=== PATIENT | female | born 1965 | race Caucasian/White ===

== ENCOUNTER 2016-08-17 20:52 | Inpatient (IN) | payer OTHER ==
[2016-08-17] MEDS ORDERED: Ondansetron 4 MG/2 ML SDV IVPUSH ONE ×2 (21:26→22:05)
[2016-08-17] MEDS ORDERED: Sodium Chloride 0.9% 1,000 ML IV SCH (22:15)
[2016-08-17] MEDS ORDERED: HYDROmorphone 1 MG/ML Syringe IVPUSH ONE (22:20)
[2016-08-17] MEDS ORDERED: Iopamidol 612 MG/ML 100 ML Bottle IV STA (23:19)
[2016-08-17] MEDS ORDERED: Lactated Ringers 1,000 ML IV SCH (23:30)
[2016-08-18] MEDS ORDERED: HYDROmorphone 1 MG/ML Syringe IVPUSH ONE (00:08)
[2016-08-18] MEDS ORDERED: Ondansetron 4 MG/2 ML SDV IVPUSH ONE (00:09)
--- NOTE | 2016-08-18 00:28 | EDM.PDOC ---
ED HPI GENERAL MEDICAL PROBLEM - General Chief Complaint: Gastrointestinal Problem Stated Complaint: STOMACH PAIN/VOMITING Time Seen by Provider: 08/17/16 21:58 Source of Information: Reports: Patient History Limitations: Reports: No Limitations - History of Present Illness INITIAL COMMENTS - FREE TEXT/NARRATIVE: History of present illness: [51-year-old female presenting with nausea and vomiting all day she has not had any oral intake. She's had no fevers or chills. She has some epigastric abdominal pain. Nausea and vomiting seems to be intractable. She appears ill and dry.] Review of systems: As per history of present illness and below otherwise all systems reviewed and negative. Past medical history: As per history of present illness and as reviewed below otherwise noncontributory. Surgical history: As per history of present illness and as reviewed below otherwise noncontributory. Social history: No reported history of drug or alcohol abuse. Family history: As per history of present illness and as reviewed below otherwise noncontributory. Physical exam: HEENT: Atraumatic, normocephalic, pupils reactive, negative for conjunctival pallor or scleral icterus, mucous membranes moist, throat clear, neck supple, nontender, trachea midline. Lungs: Clear to auscultation, breath sounds equal bilaterally, chest nontender. Heart: S1S2, regular, negative for clicks, rubs, or JVD. Abdomen: Her abdomen is soft with some tenderness to palpation in the right lower quadrant but she has some mild tenderness in the right lower quadrant as well. Bowel sounds are active. Pelvis: Stable nontender. Genitourinary: Deferred. Rectal: Deferred. Extremities: Atraumatic, negative for cords or calf pain. Neurovascular unremarkable. Neuro: Awake, alert, oriented.Exam nonfocal. 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 Dr. Webster's is jump iron machine presser] Definitive disposition and diagnosis as appropriate pending reevaluation and review of above. Abdomen Pain Score (Numeric/FACES): 9 - Related Data Allergies Allergy/AdvReac Type Severity Reaction Status Date / Time Uukliun-Xgd-Ejz Reductase Allergy Cannot Verified 08/17/16 21:10 Inhibitor Remember Home Meds: Home Meds Folic Acid 0.4 mg PO DAILY 06/10/13 [History] Iron 18 mg PO DAILY 06/10/13 [History] Niacin 50 mg PO DAILY 06/10/13 [History] [place]-3/DHA/Epa/Fish Oil [Fish Oil Dr 500 mg Softgel] 500 mg PO DAILY 06/10/13 [ History] Multivitamin [Multi-Vitamin Daily] 1 tab PO DAILY 08/17/16 [History] Ubidecarenone [Co Q-10] 1 tab PO DAILY 08/17/16 [History] Past Medical History HEENT History: Reports: Impaired Vision 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 ED EXAM, GI/ABD - Physical Exam Exam: See Below Course - Vital Signs Last Recorded V/S: Last Vital Signs Temp 36.2 C 08/17/16 21:08 Pulse 104 H 08/18/16 00:18 Resp 20 08/17/16 23:03 BP 165/97 H 08/18/16 00:18 Pulse Ox 97 08/18/16 00:18 - Orders/Labs/Meds Orders: Active Orders 24 hr Category Date Time Status Abdomen Pelvis w Cont [CT] Stat Exams 08/17/16 23:15 Taken Lactated Ringers [Ringers, Lactated] 1,000 ml Med 08/17/16 23:30 Active IV ASDIRECTED Sodium Chloride 0.9% [Normal Saline] 1,000 ml Med 08/17/16 22:15 Active IV ASDIRECTED cefOXitin [Mefoxin] 1 gm Med 08/18/16 00:23 Ordered Sodium Chloride 0.9% [Normal Saline] 50 ml IV ONETIME Medication Orders Sodium Chloride (Normal Saline) 1,000 mls @ 999 mls/hr IV ASDIRECTED [facility] Last Admin: 08/17/16 22:16 Dose: 999 mls/hr Lactated Ringer's (Ringers, Lactated) 1,000 mls @ 999 mls/hr IV ASDIRECTED [facility] Last Admin: 08/17/16 23:20 Dose: 999 mls/hr Cefoxitin Sodium 1 gm/ Sodium (Chloride) 50 mls @ 100 mls/hr IV ONETIME ONE Stop: 08/18/16 00:52 Labs: Laboratory Tests 08/17/16 08/17/16 08/17/16 Range/Units 22:16 22:16 23:13 WBC 22.3 H (4.5-11.0) K/uL RBC 5.18 (3.30-5.50) M/uL Hgb 16.1 H D (12.0-15.0) g/dL Hct 47.1 (36.0-48.0) % MCV 91 (80-98) fL MCH 31 (27-31) pg MCHC 34 (32-36) % Plt Count 369 (150-400) K/uL Neut % (Auto) 92 H (36-66) % Lymph % (Auto) 5 L (24-44) % [place] % (Auto) 3 (2-6) % Eos % (Auto) 0 L (2-4) % Baso % (Auto) 0 (0-1) % ABG Hemoglobin (12.0-16.0) g/dL ABG Oxyhemoglobin % ABG Carboxyhemoglobin (0.0-1.6) % ABG Methemoglobin % VBG pH (7.350-7.450) VBG pCO2 mm/Hg VBG pO2 mm/Hg VBG HCO3 mmol/L VBG Total CO2 mmol/L VBG O2 Saturation VBG O2 Content %vol VBG Base Excess mm/L O2 Delivery Device Sodium 135 L (140-148) mmol/L Potassium 4.5 (3.6-5.2) mmol/L Chloride 94 L (100-108) mmol/L Carbon Dioxide 13 L (21-32) mmol/L Anion Gap 32.5 H (5.0-14.0) mmol/L BUN 10 (7-18) mg/dL Creatinine 0.7 (0.6-1.0) mg/dL Est Cr Clr Drug Dosing 75.20 mL/min Estimated GFR (MDRD) > 60 (>60) Glucose 102 (74-106) mg/dL Lactic Acid 2.9 H (0.4-2.0) mmol/L Calcium 8.8 D (8.5-10.1) mg/dL Total Bilirubin 1.1 H (0.2-1.0) mg/dL AST 84 H D (15-37) U/L ALT 85 H (12-78) U/L Alkaline Phosphatase 74 (46-116) U/L Total Protein 8.9 H (6.4-8.2) g/dL Albumin 4.4 (3.4-5.0) g/dL Globulin 4.5 H (2.3-3.5) g/dL Albumin/Globulin Ratio 1.0 L (1.2-2.2) Amylase 32 (25-115) U/L Lipase 76 (73-393) U/L // Range/Units 23:15 WBC (4.5-11.0) K/uL RBC (3.30-5.50) M/uL Hgb (12.0-15.0) g/dL Hct (36.0-48.0) % MCV (80-98) fL MCH (27-31) pg MCHC (32-36) % Plt Count (150-400) K/uL Neut % (Auto) (36-66) % Lymph % (Auto) (24-44) % [place] % (Auto) (2-6) % Eos % (Auto) (2-4) % Baso % (Auto) (0-1) % ABG Hemoglobin 15.2 (12.0-16.0) g/dL ABG Oxyhemoglobin 85.8 % ABG Carboxyhemoglobin 1.1 (0.0-1.6) % ABG Methemoglobin 0.8 % VBG pH 7.279 L (7.350-7.450) VBG pCO2 27.7 mm/Hg VBG pO2 60.1 mm/Hg VBG HCO3 12.6 mmol/L VBG Total CO2 11.3 mmol/L VBG O2 Saturation 87.5 VBG O2 Content 18.3 %vol VBG Base Excess -12.6 mm/L O2 Delivery Device Room air Sodium (140-148) mmol/L Potassium (3.6-5.2) mmol/L Chloride (100-108) mmol/L Carbon Dioxide (21-32) mmol/L Anion Gap (5.0-14.0) mmol/L BUN (7-18) mg/dL Creatinine (0.6-1.0) mg/dL Est Cr Clr Drug Dosing mL/min Estimated GFR (MDRD) (>60) Glucose (74-106) mg/dL Lactic Acid (0.4-2.0) mmol/L Calcium (8.5-10.1) mg/dL Total Bilirubin (0.2-1.0) mg/dL AST (15-37) U/L ALT (12-78) U/L Alkaline Phosphatase (46-116) U/L Total Protein (6.4-8.2) g/dL Albumin (3.4-5.0) g/dL Globulin (2.3-3.5) g/dL Albumin/Globulin Ratio (1.2-2.2) Amylase (25-115) U/L Lipase (73-393) U/L Meds: Medications Generic Name Dose Route Start Last Admin Trade Name Freq PRN Reason Stop Dose Admin Sodium Chloride 1,000 mls @ 999 mls/hr 08/17/16 22:15 08/17/16 22:16 Normal Saline IV 999 mls/hr ASDIRECTED TIFFANIE Administration Lactated Ringer's 1,000 mls @ 999 mls/hr 08/17/16 23:30 08/17/16 23:20 Ringers, Lactated IV 999 mls/hr ASDIRECTED TIFFANIE Administration Cefoxitin Sodium 1 gm/ Sodium 50 mls @ 100 mls/hr 08/18/16 00:23 Chloride IV 08/18/16 00:52 ONETIME ONE Discontinued Medications Generic Name Dose Route Start Last Admin Trade Name Freq PRN Reason Stop Dose Admin Hydromorphone HCl 0.5 mg 08/17/16 22:20 08/17/16 22:40 Dilaudid IVPUSH 08/17/16 22:21 0.5 mg ONETIME ONE Administration Hydromorphone HCl 1 mg 08/18/16 00:08 08/18/16 00:15 Dilaudid IVPUSH 08/18/16 00:09 1 mg ONETIME ONE Administration Sodium Chloride 70 mls @ 3 mls/sec 08/17/16 23:20 08/17/16 23:34 Normal Saline IV 08/17/16 23:21 3 mls/sec ASDIRECTED STA Administration Iopamidol 70 ml 08/17/16 23:19 08/17/16 23:34 Isovue-300 (61%) IV 08/17/16 23:20 100 ml . DIRECTED STA Administration Ondansetron HCl 4 mg 08/17/16 21:26 08/17/16 21:32 Zofran IVPUSH 08/17/16 21:27 4 mg ONETIME ONE Administration Ondansetron HCl 4 mg 08/17/16 22:05 08/17/16 22:16 Zofran IVPUSH 08/17/16 22:06 4 mg ONETIME ONE Administration Ondansetron HCl 4 mg 08/18/16 00:09 08/18/16 00:15 Zofran IVPUSH 08/18/16 00:10 4 mg ONETIME ONE Administration Departure - Departure Time of Disposition: 00:28 Disposition: Home, Self-Care 01 Condition: Fair Clinical Impression: Acute appendicitis Qualifiers: Acute appendicitis type: with localized peritonitis Qualified Code(s): K35.3 - Acute appendicitis with localized peritonitis - Discharge Information Forms: ED Department Discharge - My Orders Last 24 Hours: My Active Orders 08/17/16 22:15 Sodium Chloride 0.9% [Normal Saline] 1,000 ml IV ASDIRECTED 08/17/16 23:15 Abdomen Pelvis w Cont [CT] Stat 08/17/16 23:30 Lactated Ringers [Ringers, Lactated] 1,000 ml IV ASDIRECTED 08/18/16 00:23 cefOXitin [Mefoxin] 1 gm Sodium Chloride 0.9% [Normal Saline] 50 ml IV ONETIME - Assessment/Plan Last 24 Hours: My Active Orders 08/17/16 22:15 Sodium Chloride 0.9% [Normal Saline] 1,000 ml IV ASDIRECTED 08/17/16 23:15 Abdomen Pelvis w Cont [CT] Stat 08/17/16 23:30 Lactated Ringers [Ringers, Lactated] 1,000 ml IV ASDIRECTED 08/18/16 00:23 cefOXitin [Mefoxin] 1 gm Sodium Chloride 0.9% [Normal Saline] 50 ml IV ONETIME
[2016-08-18] MEDS ORDERED: Ondansetron 4 MG/2 ML SDV IVPUSH PRN (01:07)
[2016-08-18] MEDS ORDERED: Scopolamine 1.5 MG Transdermal Patch TRDERM PRN (01:08)
[2016-08-18] MEDS ORDERED: Promethazine 25 MG Tab PO PRN ×4 (01:09→11:53)
[2016-08-18] MEDS ORDERED: Promethazine 12.5 MG in Sodium Chloride 0.9% 50 ML IV PRN ×2 (01:10→01:15)
[2016-08-18] MEDS ORDERED: Piperacillin/Tazobactam 4.5 GM Vial ONE (01:16)
[2016-08-18] MEDS ORDERED: diphenhydrAMINE 50 MG/ML SDV IVPUSH PRN (01:18)
[2016-08-18] MEDS ORDERED: diphenhydrAMINE 25 MG Cap PO PRN (01:19)
[2016-08-18] MEDS ORDERED: fentaNYL 100 MCG/2 ML SDV IVPUSH SCH (01:30)
[2016-08-18] MEDS ORDERED: fentaNYL 100 MCG/2 ML SDV IVPUSH PRN ×2 (01:46→11:51)
[2016-08-18] MEDS: Sodium Chloride 0.9% 1,000 ML IV SCH ×3 (01:48→21:43)
[2016-08-18] MEDS: Morphine 2 MG/ML Syringe IVPUSH PRN ×3 (02:03→20:21)
[2016-08-18] MEDS: Piperacillin/Tazobactam 4.5 GM in Sodium Chloride 0.9% 100 ML IV SCH ×2 (02:10→11:15)
[2016-08-18] MEDS ORDERED: fentaNYL 250 MCG/5 ML SDV ONE (06:50)
[2016-08-18] MEDS ORDERED: Propofol 200 MG/20 ML SDV ONE (06:50)
[2016-08-18] MEDS ORDERED: Neostigmine Methylsulfate 1 MG/ML 5 ML Syringe ONE (06:50)
[2016-08-18] MEDS ORDERED: Rocuronium 50 MG/5 ML Vial ONE (06:50)
[2016-08-18] MEDS ORDERED: Dexamethasone 4 MG/ML SDV ONE (06:50)
[2016-08-18] MEDS ORDERED: Ondansetron 4 MG/2 ML SDV ONE (06:50)
[2016-08-18] MEDS ORDERED: Midazolam 1 MG/ML 2 ML SDV ONE (07:06)
[2016-08-18] MEDS ORDERED: Succinylcholine/Normal Saline 200 MG/10 ML Syringe ONE (07:06)
[2016-08-18] MEDS: Bupivacaine 0.5%/EPINEPHrine 1:200,000 50 ML MDV ONE ×2 (07:30→08:11)
[2016-08-18] MEDS ORDERED: Lactated Ringers 1,000 ML ONE (07:31)
[2016-08-18] MEDS ORDERED: Ketorolac 60 MG/2 ML SDV ONE (07:36)
[2016-08-18] MEDS: Nicotine 14 MG/24 Hr Patch TRDERM SCH ×2 (10:00→10:32)
[2016-08-18] MEDS: Piperacillin/Tazobactam/Dext 4.5 GM in Premix Bag 1 BAG IV SCH ×2 (10:30→17:55)
--- NOTE | 2016-08-18 12:02 | CONS ---
DATE OF SERVICE: 08/18/2016 REFERRING PHYSICIAN: CONSULTING PHYSICIAN: Ricco Webster MD REASON FOR CONSULTATION: Right lower quadrant abdominal pain. HISTORY OF PRESENT ILLNESS: A pleasant 51-year-old female with right lower quadrant abdominal pain. This has been present for approximately 24 hours. This is associated with some nausea. This is a new problem for her. PAST MEDICAL HISTORY: Smoker, back pain. PAST SURGICAL HISTORY: No previous abdominal surgery. SOCIAL HISTORY: The patient is a smoker. FAMILY HISTORY: No family history of appendiceal carcinoma. REVIEW OF SYSTEMS: GENERAL: The patient is appropriate for condition. HEENT: No symptoms. CARDIOVASCULAR: No history of myocardial infarction. RESPIRATORY: No shortness of breath. The patient is a smoker, but can walk several blocks without trouble breathing. GASTROINTESTINAL: Normal bowel movements. GENITOURINARY: No dysuria. NEUROLOGICAL: No symptoms. PSYCH: No symptoms. The remainder of the review of systems reviewed and is negative. PHYSICAL EXAMINATION: VITAL SIGNS: Stable. HEENT: Pupils are equal. GENERAL: The patient is resting comfortably. CARDIOVASCULAR: Regular rhythm and rate. RESPIRATORY: Lungs are clear to consultation bilaterally. ABDOMEN: Bowel sounds positive. Pain with palpation in right lower quadrant. EXTREMITIES: Full range of motion. NEUROLOGICAL: Alert and oriented x3. PSYCH: No gross depression. ASSESSMENT: Appendicitis. PLAN: The patient is to undergo a laparoscopic appendectomy. We discussed risks, benefits, alternatives, and limitations, including, but not limited to infection, bleeding, and perforation to abdominal structures. The patient understands these risks and wished to proceed. Of note, we also discussed fistula formation, removing a normal appendix and requirement for open surgery, and cardiovascular and respiratory issues, intra and postoperatively. Rcico Webster MD /[id number]
[2016-08-18] MEDS ORDERED: Pantoprazole 40 MG Vial IVPUSH SCH (13:00)
--- NOTE | 2016-08-18 14:10 | OR ---
DATE OF PROCEDURE: 08/18/2016 PROCEDURE: Laparoscopic appendectomy. FINDINGS: Appendicitis, non ruptured. ANESTHESIA: General/local. INDICATIONS: This is a 51-year-old female with right lower quadrant abdominal pain diagnosed with appendicitis requiring appendectomy. Risks, benefits, alternatives, and limitations, including, but not limited to infection, bleeding, and perforation, fistula formation, requirement for open surgery, the possibility of cardiopulmonary compromise were all explained to the patient and wished to proceed. PROCEDURE IN DETAIL: The patient was placed in supine position. A supraumbilical curvilinear incision was made. A Veress needle was used to enter the abdomen without abnormality. A drop test was performed without abnormality. The abdomen was subsequently insufflated. The trocar was inserted. No evidence of enterotomy or injury was noted during entry. Two additional 5 mm ports were also placed under direct visualization. The appendix was identified in its classic anatomical non-retrograde location. This was elevated and the tip was inspected, this was found to contain a fecalith; however, there was no evidence of rupture. This was transected with a dodson load stapler. The minimal bleeding from the staple line was controlled with electrocautery. The electrocautery contacted a proximal area approximately 0.5 cm from the appendiceal stump. This was a very minimal contact and was not full thickness. However, due to this, this was oversewn with a Vicryl suture in an imbricating fashion. The abdomen was thoroughly irrigated with 1 L of irrigation. No evidence of abnormality was noted. Aside from the appendicitis and the fluid was removed from the appendiceal location around the liver bed and the pelvis and the generally in the abdomen. The air was removed. The wounds were thoroughly irrigated and closed with 3-0 Vicryl and 4- 0 Vicryl interrupted running fashion. Local anesthetic was applied. The patient tolerated the procedure well. Ricco Webster MD /[id number]
[2016-08-19] MEDS: Piperacillin/Tazobactam/Dext 4.5 GM in Premix Bag 1 BAG IV SCH (01:45)
[2016-08-19] MEDS: Morphine 2 MG/ML Syringe IVPUSH PRN ×2 (03:28→06:00)
[2016-08-19] MEDS: Sodium Chloride 0.9% 1,000 ML IV SCH (05:51)
[2016-08-19 05:57] VITALS: BP 153/89
[2016-08-19] MEDS ORDERED: Acetaminophen/HYDROcodone 325-5 MG Tab PO PRN (07:30)
--- NOTE | 2016-08-20 02:27 | DISCH ---
FINAL DIAGNOSIS: Acute appendicitis. OPERATIVE PROCEDURE: Laparoscopic appendectomy. HOSPITAL COURSE: This is a 51-year-old female presenting with a picture of an acute appendicitis yesterday morning. Dr. Webster brought the patient to the operating room and a laparoscopic appendectomy was completed. No significant postoperative problems were noted. She is continued on the antibiotics overnight and is still on IV pain medication at this point. Plan will be switch over to [place] today if symptoms are satisfactory. She will be discharged home later today. She has no drains present. Wound care instructions were given. She will be continue the present home medications plus [place] 5/325 one to two tablets q.4 hours p.r.n. pain. She will be following up with Dr. Webster next week in [facility].
[2016-08-20] MEDS ORDERED: Pantoprazole 40 MG Tab.CR PO SCH (07:30)
== END 2016-08-19 08:52 | disposition home or self-care (01) | DRG 340 ==
LOC: JP.ED 20:52 → JP.ICU 08-18 00:58
PROVIDERS: ADMIT Surgery; ATTEND Surgery
PROC: 0DTJ4ZZ Resection of Appendix, Percutaneous Endoscopic Approach (ICD-10-PCS; principal; 2016-08-18)
DX: K35.3 Acute appendicitis with localized peritonitis (principal); F17.210 Nicotine dependence, cigarettes, uncomplicated; H54.7 Unspecified visual loss; Z88.8 Allergy status to other drugs, medicaments and biological substances
CPT/HCPCS: 36415; 74177; 80048; 80053; 82150; 82803; 83605; 83690; 85025; 88304; 96361; 96365; 96367; 96375; 96376; 99285-25; A9270-GY; C9113; J0694; J1100; J1170; J1885; J2250; J2270; J2405; J2543; J2550; J2704; J3010; J7030; J7040; J7050; J7120; Q9967

== ENCOUNTER 2020-03-06 17:02 | Observation (INO) | payer BC ==
[2020-03-06] MEDS: Sodium Chloride 0.9% 1,000 ML IV SCH ×2 (17:51→19:26)
--- NOTE | 2020-03-06 17:51 | EDM.PDOC ---
ED HPI GENERAL MEDICAL PROBLEM - General Chief Complaint: Gastrointestinal Problem Stated Complaint: VOMITTING Time Seen by Provider: 03/06/20 17:30 Source of Information: Reports: Patient, Family History Limitations: Reports: No Limitations - History of Present Illness INITIAL COMMENTS - FREE TEXT/NARRATIVE: 55-year-old female with inability to swallow food or fluids for the past 36 hours. Mild to moderate substernal pressure and discomfort but no abdominal bloating or radiation of pain to the back. No fevers or chills. No diarrhea. It started after she woke up yesterday morning. She will take a few swallows of Gatorade, Pedialyte, fluids, does not matter what she tries to drink within a few minutes it builds up and comes back up. She has not tried to eat anything solid in the last 2 days. Onset: Unknown/Unsure (Symptoms were present yesterday morning when she woke up) Improves with: Reports: None Worsens with: Reports: Other (Symptoms worsen with any attempt at taking anything oral whether it is liquid or solid) Associated Symptoms: Reports: Chest Pain (Mild pressure, especially after drinking fluids) Abdomen Pain Score (Numeric/FACES): 6 - Related Data Allergies Allergy/AdvReac Type Severity Reaction Status Date / Time Saabieu-Cli-Wpq Reductase Allergy Unknown Cannot Verified 03/06/20 18:32 Inhibitor Remember Home Meds: Home Meds Iron 18 mg PO DAILY 06/10/13 [History] Niacin 50 mg PO DAILY 06/10/13 [History] [place]-3/DHA/Epa/Fish Oil [Fish Oil Dr 500 mg Softgel] 500 mg PO DAILY 06/10/13 [History] Multivitamin [Multi-Vitamin Daily] 1 tab PO DAILY 08/17/16 [History] Ubidecarenone [Co Q-10] 1 tab PO DAILY 08/17/16 [History] Garlic [Garlique] 5,000 mcg PO DAILY 03/06/20 [History] Metoprolol Succinate 50 mg PO DAILY 03/06/20 [History] Past Medical History HEENT History: Reports: Impaired Vision Cardiovascular History: Reports: Hypertension 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 Denies: Fever, Chills HEENT: Denies: Throat Pain Respiratory: Denies: Shortness of Breath Cardiovascular: Reports: Chest Pain GI/Abdominal: Reports: Abdominal Pain (Mild discomfort in the upper abdomen after she tries to eat or drink but none currently) : Reports: No Symptoms Neurological: Reports: No Symptoms Psychiatric: Reports: No Symptoms ED EXAM, GI/ABD - Physical Exam Exam: See Below Exam Limited By: No Limitations General Appearance: Alert, No Apparent Distress Eyes: Bilateral: Normal Appearance (No jaundice) Head: Atraumatic Respiratory/Chest: No Respiratory Distress, Lungs Clear Cardiovascular: Regular Rate, Rhythm, Tachycardia GI/Abdominal Exam: Soft, Non-Tender, Other (Hypoactive bowel sounds) Neurological: Alert, Oriented Psychiatric: Anxious Course - Vital Signs Last Recorded V/S: Last Vital Signs Temp 98.8 F 03/07/20 02:00 Pulse 120 H 03/07/20 02:00 Resp 18 03/07/20 02:00 BP 132/68 03/07/20 02:00 Pulse Ox 93 L 03/07/20 02:00 - Orders/Labs/Meds Orders: Active Orders 24 hr Category Date Time Status Admission Status [Patient Status] [ADT] Routine ADT 03/06/20 18:06 Active Sodium Chloride 0.9% [Normal Saline] 1,000 ml Med 03/06/20 17:45 Active IV ASDIRECTED Medication Orders Dexamethasone (Decadron) 10 mg IVPUSH Q4H PRN PRN Reason: NAUSEA/VOMITING Diphenhydramine HCl (Benadryl) 25 - 50 mg PO Q4H PRN PRN Reason: Itching Diphenhydramine HCl (Benadryl) 25 - 50 mg IVPUSH Q4H PRN PRN Reason: Itching Dronabinol (Marinol) 2.5 mg PO BID PRN PRN Reason: NAUSEA/VOMINTING Sodium Chloride (Normal Saline) 1,000 mls @ 1,000 mls/hr IV ASDIRECTED TIFFANIE Last Admin: 03/06/20 17:51 Dose: 1,000 mls/hr Documented by: BINH Sodium Chloride (Normal Saline) 1,000 mls @ 125 mls/hr IV ASDIRECTED TIFFANIE Last Admin: 03/07/20 04:14 Dose: 125 mls/hr Documented by: Infusion: 03/07/20 03:26 Dose: 125 mls/hr Documented by: Admin: 03/06/20 19:26 Dose: 125 mls/hr Documented by: ELBA Morphine Sulfate (Morphine) 1 - 2 mg IV Q2H PRN PRN Reason: Pain Nicotine (Habitrol) 14 mg TRDERM Q24H PRN PRN Reason: Other Check Scopolamine (Patch) 1 each .XX DAILY TIFFANIE Check Nicotine Patch 1 each .XX DAILY TIFFANIE Ondansetron HCl (Zofran) 4 mg IVPUSH Q4H PRN PRN Reason: Nausea Prochlorperazine Edisylate (Compazine) 5 - 10 mg IV Q4H PRN PRN Reason: NAUSEA Last Admin: 03/06/20 23:09 Dose: 10 mg Documented by: ELBA Promethazine HCl (Phenergan) 12.5 - 25 mg IV Q4H PRN PRN Reason: NAUSEA AND VOMITING Scopolamine (Transderm-Scop) 1.5 mg TOP Q72H PRN PRN Reason: Nausea Last Admin: 03/06/20 19:47 Dose: 1.5 mg Documented by: ELBA Labs: Laboratory Tests 03/06/20 03/06/20 03/06/20 Range/Units 17:50 17:50 18:00 WBC 13.8 H (4.5-11.0) K/uL RBC 4.75 (3.30-5.50) M/uL Hgb 15.8 H D (12.0-15.0) g/dL Hct 46.8 (36.0-48.0) % MCV 99 H (80-98) fL MCH 33 H (27-31) pg MCHC 34 (32-36) % Plt Count 265 (150-400) K/uL Neut % (Auto) 85 H (36-66) % Lymph % (Auto) 7 L (24-44) % [place] % (Auto) 7 H (2-6) % Eos % (Auto) 0 L (2-4) % Baso % (Auto) 0 (0-1) % Sodium 139 L (140-148) mmol/L Potassium 3.5 L (3.6-5.2) mmol/L Chloride 89 L (100-108) mmol/L Carbon Dioxide 24 (21-32) mmol/L Anion Gap 29.5 H (5.0-14.0) mmol/L BUN 28 H D (7-18) mg/dL Creatinine 1.4 H D (0.6-1.0) mg/dL Est Cr Clr Drug Dosing 35.91 mL/min Estimated GFR (MDRD) 39 L (>60) Glucose 211 H (74-106) mg/dL Calcium 10.7 H D (8.5-10.1) mg/dL Total Bilirubin 1.5 H (0.2-1.0) mg/dL AST 56 H (15-37) U/L ALT 102 H (12-78) U/L Alkaline Phosphatase 78 (46-116) U/L Total Protein 9.6 H (6.4-8.2) g/dL Albumin 4.9 (3.4-5.0) g/dL Globulin 4.7 H (2.3-3.5) g/dL Albumin/Globulin Ratio 1.0 L (1.2-2.2) Lipase 312 (73-393) U/L SARS-CoV-2 RNA (DAYSI) Negative (NEGATIVE) Meds: Medications Generic Name Dose Route Start Last Admin Trade Name Freq PRN Reason Stop Dose Admin Dexamethasone 10 mg 03/06/20 20:05 Decadron IVPUSH Q4H PRN NAUSEA/VOMITING Diphenhydramine HCl 25 - 50 mg 03/06/20 18:55 Benadryl PO Q4H PRN Itching Diphenhydramine HCl 25 - 50 mg 03/06/20 18:55 Benadryl IVPUSH Q4H PRN Itching Dronabinol 2.5 mg 03/06/20 20:05 Marinol PO BID PRN NAUSEA/VOMINTING Sodium Chloride 1,000 mls @ 1,000 mls/hr 03/06/20 17:45 03/06/20 17:51 Normal Saline IV 1,000 mls/hr ASDIRECTED TIFFANIE Administration Sodium Chloride 1,000 mls @ 125 mls/hr 03/06/20 20:00 03/07/20 04:14 Normal Saline IV 125 mls/hr ASDIRECTED TIFFANIE Administration Morphine Sulfate 1 - 2 mg 03/06/20 20:11 Morphine IV Q2H PRN Pain Nicotine 14 mg 03/06/20 20:10 Habitrol TRDERM Q24H PRN Other Check Scopolamine 1 each 03/07/20 09:00 Patch .XX DAILY TIFFANIE Check Nicotine Patch 1 each 03/07/20 09:00 .XX DAILY TIFFANIE Ondansetron HCl 4 mg 03/06/20 20:05 Zofran IVPUSH Q4H PRN Nausea Prochlorperazine Edisylate 5 - 10 mg 03/06/20 20:05 03/06/20 23:09 Compazine IV 10 mg Q4H PRN Administration NAUSEA Promethazine HCl 12.5 - 25 mg 03/06/20 20:05 Phenergan IV Q4H PRN NAUSEA AND VOMITING Scopolamine 1.5 mg 03/06/20 19:09 03/06/20 19:47 Transderm-Scop TOP 1.5 mg Q72H PRN Administration Nausea Discontinued Medications Generic Name Dose Route Start Last Admin Trade Name Freq PRN Reason Stop Dose Admin Sodium Chloride 1,000 mls @ 125 mls/hr 03/06/20 19:00 03/07/20 04:19 Normal Saline IV Not Given .Q8H TIFFANIE Ondansetron HCl 4 mg 03/06/20 18:55 03/06/20 19:26 Zofran IVPUSH 4 mg Q8H PRN Administration Nausea/Vomiting Promethazine HCl 12.5 - 25 mg 03/06/20 18:57 03/06/20 20:25 Phenergan IV 25 mg Q8H PRN Administration Nausea - Radiology Interpretation Free Text/Narrative:: This patient presents with some type of upper GI obstruction, possibly esophageal or gastric outlet. She will need an EGD in the near future. CBC CMP and lipase were obtained, IV started and the patient was bolused with normal saline. I discussed her case with Dr. Webster, he kindly accepted her for admission and will hydrate her and prepare her for procedure likely tomorrow morning. Departure - Departure Time of Disposition: 18:18 Disposition: Admitted As Inpatient 66 Clinical Impression: GI obstruction Nausea and vomiting Qualifiers: Vomiting type: unspecified Vomiting Intractability: intractable Qualified Code(s): R11.2 - Nausea with vomiting, unspecified - Discharge Information Sepsis Event Note (ED) - Evaluation Sepsis Screening Result: No Definite Risk - My Orders Last 24 Hours: My Active Orders 03/06/20 17:45 Sodium Chloride 0.9% [Normal Saline] 1,000 ml IV ASDIRECTED - Assessment/Plan Last 24 Hours: My Active Orders 03/06/20 17:45 Sodium Chloride 0.9% [Normal Saline] 1,000 ml IV ASDIRECTED
[2020-03-06] MEDS ORDERED: Ondansetron 4 MG/2 ML SDV IVPUSH PRN ×3 (18:55→20:05)
[2020-03-06] MEDS ORDERED: diphenhydrAMINE 50 MG/ML SDV IVPUSH PRN (18:55)
[2020-03-06] MEDS ORDERED: diphenhydrAMINE 25 MG Cap PO PRN (18:55)
[2020-03-06] MEDS ORDERED: Promethazine 25 MG/ML SDV IV PRN ×2 (18:57→20:05)
[2020-03-06] MEDS ORDERED: Sodium Chloride 0.9% 1,000 ML IV SCH (19:00)
[2020-03-06] MEDS ORDERED: Scopolamine 1.5 MG Transdermal Patch TOP PRN (19:09)
[2020-03-06] MEDS ORDERED: Prochlorperazine 10 MG/2 ML SDV IV PRN (20:05)
[2020-03-06] MEDS ORDERED: Dexamethasone 4 MG/ML SDV IVPUSH PRN (20:05)
[2020-03-06] MEDS ORDERED: Dronabinol 2.5 MG Cap PO PRN (20:05)
[2020-03-06] MEDS ORDERED: Nicotine 14 MG/24 Hr Patch TRDERM PRN (20:10)
[2020-03-06] MEDS ORDERED: Morphine 2 MG/ML SYRINGE IV PRN (20:11)
[2020-03-07] MEDS: Sodium Chloride 0.9% 1,000 ML IV SCH ×3 (04:14→10:13)
[2020-03-07] MEDS ORDERED: fentaNYL 100 MCG/2 ML SDV ONE (07:05)
[2020-03-07] MEDS ORDERED: Midazolam 1 MG/ML 2 ML SDV ONE (07:05)
[2020-03-07] MEDS ORDERED: Propofol 200 MG/20 ML SDV ONE (07:05)
[2020-03-07] MEDS: Check scopolamine patch SCH (09:49)
[2020-03-07] MEDS ORDERED: Nystatin Susp 100,000 Unit/ML 5 ML UD Cup PO SCH (10:00)
--- NOTE | 2020-03-07 10:00 | CONS ---
DATE OF SERVICE: 03/07/2020 REFERRING PHYSICIAN: CONSULTING PHYSICIAN: Ricco Webster MD CONSULTING: Lincoln Diaz MD REASON FOR CONSULTATION: Dysphagia. HISTORY OF PRESENT ILLNESS: A 55-year-old female who has had approximately 48 hours of dysphagia. This is associated with some nausea. No vomiting, shortness of breath, or chest pain. This is a new problem for her. The patient has had this ongoing, and somewhat stable at this point. PAST MEDICAL HISTORY: Hypertension, appendectomy, hernia repair. SOCIAL HISTORY: She does smoke. FAMILY HISTORY: Noncontributory. REVIEW OF SYSTEMS: GENERAL: The patient feels tired. HEENT: Dysphagia as above. RESPIRATORY: No shortness of breath. CARDIOVASCULAR: No history of chest pain. GASTROINTESTINAL: Abdominal pain, but related to her dysphagia. NEUROLOGIC: No symptoms. PSYCHIATRIC: No symptoms. Remainder of systems reviewed and is negative. PHYSICAL EXAMINATION: VITAL SIGNS: Temperature 98.0, blood pressure 161/91, 113 pulse, respirations 20, 98% on room air. HEENT: Pupils are equal. NECK: Supple. LUNGS: Clear. CARDIOVASCULAR: Regular rhythm and rate. GENERAL: The patient is resting comfortably. NEUROLOGIC: Oriented x3. PSYCHIATRIC: No gross depression. LABORATORY RESULTS: Sodium is 139, creatinine is 1.4. IMAGING DATA: I did review this. No recent imaging. ASSESSMENT: Dysphagia. PLAN: The patient will be admitted to the hospital. She will undergo fluid, electrolyte resuscitation tonight and undergo an esophagogastroduodenoscopy in the morning. We discussed risks, benefits, alternatives, and limitations of this. Ricco Webster MD /[id number]
[2020-03-07] MEDS ORDERED: Potassium Chloride 20 MEQ Tab.ER PO ONE ×2 (10:24→17:00)
--- NOTE | 2020-03-07 10:32 | PCM.PN ---
- General Info Date of Service: 03/07/20 Subjective Update: Ms. Lemus is a 55-year-old woman who was admitted through the emergency department last night with weakness and dehydration secondary to nausea and vomiting of 2 days duration. She felt well until onset of symptoms 2 days ago and over the last 2 days has had negligible oral intake because of persistent vomiting. She was admitted and given IV fluids as well as antiemetic therapy through the night. EGD was performed today by Dr. Webster and did show in flammation in the esophagus, question of possible yeast overgrowth. She is feeling somewhat better and has tolerated some intake of water today without significant vomiting. Functional Status: Reports: Ambulating, Urinating - Review of Systems General: Reports: Weakness, Fatigue. Denies: Fever, Chills Pulmonary: Reports: No Symptoms Cardiovascular: Reports: No Symptoms Gastrointestinal: Reports: Abdominal Pain. Denies: Constipation, Diarrhea, Difficulty Swallowing, Hematochezia, Melena, Nausea, Vomiting Genitourinary: Reports: No Symptoms - Patient Data Vitals - Most Recent: Last Vital Signs Temp 97.7 F 03/07/20 08:45 Pulse 91 03/07/20 10:13 Resp 16 03/07/20 10:13 BP 163/96 H 03/07/20 10:13 Pulse Ox 95 03/07/20 10:13 Weight - Most Recent: 119 lb 15.997 oz I&O - Last 24 Hours: Intake & Output 03/06/20 03/07/20 03/07/20 22:59 06:59 14:59 Output Total 100 400 Balance -100 -400 Lab Results Last 24 Hours: Laboratory Results - last 24 hr 03/06/20 03/06/20 03/06/20 Range/Units 17:50 17:50 18:00 WBC 13.8 H (4.5-11.0) K/uL RBC 4.75 (3.30-5.50) M/uL Hgb 15.8 H D (12.0-15.0) g/dL Hct 46.8 (36.0-48.0) % MCV 99 H (80-98) fL MCH 33 H (27-31) pg MCHC 34 (32-36) % Plt Count 265 (150-400) K/uL Neut % (Auto) 85 H (36-66) % Lymph % (Auto) 7 L (24-44) % Larue % (Auto) 7 H (2-6) % Eos % (Auto) 0 L (2-4) % Baso % (Auto) 0 (0-1) % Sodium 139 L (140-148) mmol/L Potassium 3.5 L (3.6-5.2) mmol/L Chloride 89 L (100-108) mmol/L Carbon Dioxide 24 (21-32) mmol/L Anion Gap 29.5 H (5.0-14.0) mmol/L BUN 28 H D (7-18) mg/dL Creatinine 1.4 H D (0.6-1.0) mg/dL Est Cr Clr Drug Dosing 35.91 mL/min Estimated GFR (MDRD) 39 L (>60) Glucose 211 H (74-106) mg/dL Calcium 10.7 H D (8.5-10.1) mg/dL Total Bilirubin 1.5 H (0.2-1.0) mg/dL AST 56 H (15-37) U/L ALT 102 H (12-78) U/L Alkaline Phosphatase 78 (46-116) U/L Total Protein 9.6 H (6.4-8.2) g/dL Albumin 4.9 (3.4-5.0) g/dL Globulin 4.7 H (2.3-3.5) g/dL Albumin/Globulin Ratio 1.0 L (1.2-2.2) Lipase 312 (73-393) U/L SARS-CoV-2 RNA (DAYSI) Negative (NEGATIVE) 03/07/20 03/07/20 Range/Units 09:14 09:14 WBC 7.8 (4.5-11.0) K/uL RBC 3.80 (3.30-5.50) M/uL Hgb 12.8 D (12.0-15.0) g/dL Hct 39.2 (36.0-48.0) % MCV 103 H (80-98) fL MCH 34 H (27-31) pg MCHC 33 (32-36) % Plt Count 187 (150-400) K/uL Neut % (Auto) (36-66) % Lymph % (Auto) (24-44) % Larue % (Auto) (2-6) % Eos % (Auto) (2-4) % Baso % (Auto) (0-1) % Sodium 141 (140-148) mmol/L Potassium 3.1 L (3.6-5.2) mmol/L Chloride 102 (100-108) mmol/L Carbon Dioxide 26 (21-32) mmol/L Anion Gap 16.1 H (5.0-14.0) mmol/L BUN 19 H (7-18) mg/dL Creatinine 0.8 (0.6-1.0) mg/dL Est Cr Clr Drug Dosing 62.84 mL/min Estimated GFR (MDRD) > 60 (>60) Glucose 113 H (74-106) mg/dL Calcium 8.3 L D (8.5-10.1) mg/dL Total Bilirubin 0.8 (0.2-1.0) mg/dL AST 42 H (15-37) U/L ALT 66 (12-78) U/L Alkaline Phosphatase 55 (46-116) U/L Total Protein 7.0 (6.4-8.2) g/dL Albumin 3.4 (3.4-5.0) g/dL Globulin 3.6 H (2.3-3.5) g/dL Albumin/Globulin Ratio 0.9 L (1.2-2.2) Lipase (73-393) U/L SARS-CoV-2 RNA (DAYSI) (NEGATIVE) Med Orders - Current: Current Medications Dexamethasone (Decadron) 10 mg IVPUSH Q4H PRN PRN Reason: NAUSEA/VOMITING Diphenhydramine HCl (Benadryl) 25 - 50 mg PO Q4H PRN PRN Reason: Itching Diphenhydramine HCl (Benadryl) 25 - 50 mg IVPUSH Q4H PRN PRN Reason: Itching Dronabinol (Marinol) 2.5 mg PO BID PRN PRN Reason: NAUSEA/VOMINTING Morphine Sulfate (Morphine) 1 - 2 mg IV Q2H PRN PRN Reason: Pain Nicotine (Habitrol) 14 mg TRDERM Q24H PRN PRN Reason: Other Check Scopolamine (Patch) 1 each .XX DAILY [facility] Last Admin: 03/07/20 09:49 Dose: Not Given Documented by: Check Nicotine Patch 1 each .XX DAILY [facility] Last Admin: 03/07/20 10:10 Dose: Not Given Documented by: Ondansetron HCl (Zofran) 4 mg IVPUSH Q4H PRN PRN Reason: Nausea Pantoprazole Sodium (Protonix) 40 mg PO BIDAC [facility] Potassium Chloride (Klor-Con M20) 40 meq PO ONETIME ONE Stop: 03/07/20 10:25 Potassium Chloride (Klor-Con M20) 40 meq PO ONETIME ONE Stop: 03/07/20 17:01 Prochlorperazine Edisylate (Compazine) 5 - 10 mg IV Q4H PRN PRN Reason: NAUSEA Last Admin: 03/06/20 23:09 Dose: 10 mg Documented by: Promethazine HCl (Phenergan) 12.5 - 25 mg IV Q4H PRN PRN Reason: NAUSEA AND VOMITING Scopolamine (Transderm-Scop) 1.5 mg TOP Q72H PRN PRN Reason: Nausea Last Admin: 03/06/20 19:47 Dose: 1.5 mg Documented by: Sucralfate (Carafate) 1 gm PO Q6H [facility] Discontinued Medications Fentanyl (Sublimaze) Confirm Administered Dose 100 mcg .ROUTE .STK-MED ONE Stop: 03/07/20 07:06 Sodium Chloride (Normal Saline) 1,000 mls @ 1,000 mls/hr IV ASDIRECTED [facility] Last Admin: 03/07/20 10:11 Dose: 1,000 mls/hr Documented by: Sodium Chloride (Normal Saline) 1,000 mls @ 125 mls/hr IV .Q8H [facility] Last Admin: 03/07/20 04:19 Dose: Not Given Documented by: Sodium Chloride (Normal Saline) 1,000 mls @ 125 mls/hr IV ASDIRECTED [facility] Last Admin: 03/07/20 10:13 Dose: 125 mls/hr Documented by: Midazolam HCl (Versed 1 Mg/Ml) Confirm Administered Dose 2 mg .ROUTE .STK-MED ONE Stop: 03/07/20 07:06 Nystatin (Mycostatin) 5 ml PO QID [facility] Ondansetron HCl (Zofran) 4 mg IVPUSH Q8H PRN PRN Reason: Nausea/Vomiting Last Admin: 03/06/20 19:26 Dose: 4 mg Documented by: Promethazine HCl (Phenergan) 12.5 - 25 mg IV Q8H PRN PRN Reason: Nausea Last Admin: 03/06/20 20:25 Dose: 25 mg Documented by: Propofol (Diprivan 20 Ml) Confirm Administered Dose 200 mg .ROUTE .STK-MED ONE Stop: 03/07/20 07:06 - Exam Quality Assessment: DVT Prophylaxis General: Alert, Oriented, Cooperative, Mild Distress Lungs: Clear to Auscultation, Normal Respiratory Effort Cardiovascular: Regular Rate, Regular Rhythm, No Murmurs GI/Abdominal Exam: Soft, No Organomegaly, Tender. No: Distended, Guarding, Rigid, Rebound Extremities: Non-Tender, No Pedal Edema Sepsis Event Note - Evaluation Sepsis Screening Result: Sepsis Risk - Focused Exam Vital Signs: Vital Signs Temp Pulse Resp BP Pulse Ox 03/07/20 10:13 91 16 163/96 H 95 03/07/20 09:15 102 H 16 148/82 H 95 03/07/20 08:45 97.7 F 105 H 16 147/82 H 95 03/07/20 08:35 102 H 18 128/78 93 L 03/07/20 08:20 115 H 18 132/81 96 03/07/20 08:10 97.7 F 108 H 14 127/70 94 L 03/07/20 08:05 110 H 14 125/69 95 03/07/20 08:00 111 H 14 125/76 94 L 03/07/20 07:55 108 H 14 131/77 96 03/07/20 07:50 97.3 F 115 H 14 110/70 97 03/07/20 07:00 99.0 F 118 H 18 140/79 96 03/07/20 02:00 98.8 F 120 H 18 132/68 93 L - Problem List Review Problem List Initiated/Reviewed/Updated: Yes - My Orders Last 24 Hours: My Active Orders 03/07/20 Breakfast Advance Diet Instructions [DIET] 03/07/20 10:22 Pantoprazole [ProTONIX] 40 mg PO BIDAC Convert IV to Saline Lock [OM.PC] Routine 03/07/20 10:24 Potassium Chloride [Klor-Con M20] 40 meq PO ONETIME ONE 03/07/20 10:30 Sucralfate [Carafate] 1 gm PO Q6H 03/07/20 17:00 Potassium Chloride [Klor-Con M20] 40 meq PO ONETIME ONE 03/08/20 05:11 POTASSIUM,K [CHEM] AM - Plan Plan:: ASSESSMENT AND PLAN VIRAL GASTROENTERITIS-most likely cause of recurrent nausea and vomiting over the past 2 days. Symptomatically she seems to be improved and has tolerated some intake of water today without vomiting. -Saline lock IV -Clear liquid diet, advance to soft low residue if tolerated ESOPHAGITIS-likely secondary to recurrent vomiting over the last 48 hours. Question of possible yeast overgrowth, unlikely as she does not have significant risk factors for yeast infection. -Hold nystatin -Protonix 40 mg p.o. twice daily -Carafate slurry 1 g swish and swallow 4 times daily DEHYDRATION-secondary to nausea and vomiting with poor oral intake, resolved after IV fluids -Saline lock IV MAINTENANCE ISSUES -DVT prophylaxis; mechanical -GI prophylaxis; Protonix as above -Mcintyre catheter; not indicated -Nutrition; clear liquid diet advance as tolerated -Nicotine dependence; not required CODE STATUS-FULL CODE ADMISSION STATUS-patient will be admitted to inpatient status, expect at least a 2 night hospital stay for evaluation and management of problems as outlined above. At the time of this admission I do not reasonably expected evaluation and management of this problem will require more than a 96 hour hospital stay. DISPOSITION-anticipate discharge to home after the hospital stay. PRIMARY CARE PROVIDER-Roxanne Charles
[2020-03-07] MEDS: Pantoprazole 40 MG Tab.CR PO SCH ×2 (10:53→17:07)
[2020-03-07] MEDS: Sucralfate Suspension 1 GM/10 ML Cup PO SCH ×3 (10:53→21:45)
--- NOTE | 2020-03-07 13:00 | OR ---
DATE OF PROCEDURE: 03/07/2020 SURGEON: Ricco Webster MD PROCEDURE: Esophagogastroduodenoscopy. FINDINGS: 1. White plaque-like circumferential lesions in the distal esophagus (biopsied multiple times using cold biopsy forceps). 2. No evidence of obstructing narrowing stricturing. No ulceration. No gastritis. PREOPERATIVE DIAGNOSIS: Dysphagia. POSTOPERATIVE DIAGNOSIS: Dysphagia. RISKS: Risks, benefits, alternatives, and limitations including, but not limited to infection, bleeding, and perforation were explained to the patient and the wished to proceed. PROCEDURE IN DETAIL: The patient was placed in left lateral decubitus position. The EGD scope was introduced and advanced atraumatically to the second part of the duodenum. Scope was brought back within the stomach and retroflexed. The patient would have less than 1 cm hiatal hernia. No gastritis. No duodenitis. No ulceration. Starting at the GE junction moving approximately 5 cm proximal to this, the patient had white plaque-like areas in the circumference. This is consistent with esophagitis versus thrush. The remainder of the esophagus was inspected without abnormality. The patient tolerated the procedure well. Ricco Webster MD /[id number]
[2020-03-08] MEDS: Sucralfate Suspension 1 GM/10 ML Cup PO SCH ×2 (04:51→11:57)
[2020-03-08 08:19] VITALS: PULSE 83
[2020-03-08] MEDS: Pantoprazole 40 MG Tab.CR PO SCH (08:39)
[2020-03-08 08:40] VITALS: BP 146/77
[2020-03-08] MEDS: Check scopolamine patch SCH (08:40)
--- NOTE | 2020-03-08 10:25 | PCM.DCSUM1 ---
Discharge Summary - Hospital Course Brief History: Ms. Lemus is a 55-year-old woman who was admitted through the emergency department with weakness, dehydration, dysphagia, secondary to viral gastroenteritis and persistent nausea and vomiting. - Discharge Data Discharge Date: 03/08/20 Discharge Disposition: Home, Self-Care 01 Condition: Fair - Referral to Home Health Primary Care Physician: IAN Anguiano - Discharge Diagnosis/Problem(s) (1) Viral gastroenteritis SNOMED Code(s): 381258780 ICD Code: A08.4 - VIRAL INTESTINAL INFECTION, UNSPECIFIED Status: Acute Current Visit: Yes (2) Esophagitis SNOMED Code(s): 24832386 ICD Code: K20.90 - ESOPHAGITIS, UNSPECIFIED WITHOUT BLEEDING Status: Acute Current Visit: Yes (3) Nausea and vomiting SNOMED Code(s): 85282704 ICD Code: R11.2 - NAUSEA WITH VOMITING, UNSPECIFIED Status: Acute Current Visit: Yes Qualifiers: Vomiting type: unspecified Vomiting Intractability: intractable Qualified Code(s): R11.2 - Nausea with vomiting, unspecified - Patient Summary/Data Hospital Course: Ms. Lemus is a 55-year-old woman who was admitted through the emergency department with weakness, dehydration, dysphagia, secondary to viral gastroenteritis and persistent vomiting. She was feeling well until 2 days prior to admission when she developed severe nausea and vomiting. Over the last 2 days oral intake has been negligible and she has become progressively more weak also developed difficulty with dysphagia and pain on swallowing. She was admitted through the emergency department by Dr. Webster, the following morning EGD was performed which did show evidence of significant esophagitis. There was question of possible yeast infection, it was felt more likely that the esophagitis was secondary to her persistent nausea and vomiting. She was given IV fluids for hydration as well as oral replacement of potassium for correction of hypokalemia. She was started on Protonix 40 mg twice daily as well as Carafate slurry 1 g 4 times daily. By the following morning she was doing better although still experience some pain and dysphagia but improved from admission. She will be discharged home and is encouraged to maintain hydration with oral fluids. She can have soft solids as tolerated. She will be on Protonix 40 mg twice daily for 2 weeks and then once daily thereafter. Activity will be as tolerated and she will be on a soft low residue diet. Follow-up appointment will be scheduled with her primary care provider within 1 week. - Patient Instructions Diet: GI Soft/Low Residue/Low Fiber Activity: As Tolerated Other/Special Instructions: Please schedule follow-up appointment with primary care provider within 1 week. - Discharge Plan *PRESCRIPTION DRUG MONITORING PROGRAM REVIEWED*: Not Applicable *COPY OF PRESCRIPTION DRUG MONITORING REPORT IN PATIENT CARY: Not Applicable Prescriptions/Med Rec: Pantoprazole [ProTONIX] 40 mg PO BIDAC #30 tab.cr Home Medications: Home Meds Iron 18 mg PO DAILY 06/10/13 [History] Niacin 50 mg PO DAILY 06/10/13 [History] [place]-3/DHA/Epa/Fish Oil [Fish Oil Dr 500 mg Softgel] 500 mg PO DAILY 06/10/13 [History] Multivitamin [Multi-Vitamin Daily] 1 tab PO DAILY 08/17/16 [History] Ubidecarenone [Co Q-10] 1 tab PO DAILY 08/17/16 [History] Garlic [Garlique] 5,000 mcg PO DAILY 03/06/20 [History] Metoprolol Succinate 50 mg PO DAILY 03/06/20 [History] Pantoprazole [ProTONIX] 40 mg PO BIDAC #30 tab.cr 03/08/20 [Rx] Referrals: Roxanne Charles PA [Primary Care Provider] - - Discharge Summary/Plan Comment DC Time >30 min.: No - Patient Data Vitals - Most Recent: Last Vital Signs Temp 99.4 F 03/08/20 07:00 Pulse 83 03/08/20 07:00 Resp 16 03/08/20 07:00 BP 146/77 H 03/08/20 08:40 Pulse Ox 96 03/08/20 07:00 Weight - Most Recent: 119 lb 15.997 oz I&O - Last 24 hours: Intake & Output 03/07/20 03/08/20 03/08/20 22:59 06:59 14:59 Intake Total 2006 Balance 2006 Lab Results - Last 24 hrs: Laboratory Results - last 24 hr 03/08/20 Range/Units 05:00 Potassium 4.1 (3.6-5.2) mmol/L Med Orders - Current: Current Medications Dexamethasone (Decadron) 10 mg IVPUSH Q4H PRN PRN Reason: NAUSEA/VOMITING Diphenhydramine HCl (Benadryl) 25 - 50 mg PO Q4H PRN PRN Reason: Itching Diphenhydramine HCl (Benadryl) 25 - 50 mg IVPUSH Q4H PRN PRN Reason: Itching Dronabinol (Marinol) 2.5 mg PO BID PRN PRN Reason: NAUSEA/VOMINTING Morphine Sulfate (Morphine) 1 - 2 mg IV Q2H PRN PRN Reason: Pain Nicotine (Habitrol) 14 mg TRDERM Q24H PRN PRN Reason: Other Check Scopolamine (Patch) 1 each .XX DAILY [facility] Last Admin: 03/08/20 08:40 Dose: Not Given Documented by: Check Nicotine Patch 1 each .XX DAILY [facility] Last Admin: 03/08/20 08:39 Dose: Not Given Documented by: Ondansetron HCl (Zofran) 4 mg IVPUSH Q4H PRN PRN Reason: Nausea Pantoprazole Sodium (Protonix) 40 mg PO BIDAC [facility] Last Admin: 03/08/20 08:39 Dose: 40 mg Documented by: Prochlorperazine Edisylate (Compazine) 5 - 10 mg IV Q4H PRN PRN Reason: NAUSEA Last Admin: 03/06/20 23:09 Dose: 10 mg Documented by: Promethazine HCl (Phenergan) 12.5 - 25 mg IV Q4H PRN PRN Reason: NAUSEA AND VOMITING Scopolamine (Transderm-Scop) 1.5 mg TOP Q72H PRN PRN Reason: Nausea Last Admin: 03/06/20 19:47 Dose: 1.5 mg Documented by: Sucralfate (Carafate) 1 gm PO Q6H [facility] Last Admin: 03/08/20 04:51 Dose: Not Given Documented by: Discontinued Medications Fentanyl (Sublimaze) Confirm Administered Dose 100 mcg .ROUTE .STK-MED ONE Stop: 03/07/20 07:06 Sodium Chloride (Normal Saline) 1,000 mls @ 1,000 mls/hr IV ASDIRECTED [facility] Last Admin: 03/07/20 10:11 Dose: 1,000 mls/hr Documented by: Sodium Chloride (Normal Saline) 1,000 mls @ 125 mls/hr IV .Q8H [facility] Last Admin: 03/07/20 04:19 Dose: Not Given Documented by: Sodium Chloride (Normal Saline) 1,000 mls @ 125 mls/hr IV ASDIRECTED [facility] Last Admin: 03/07/20 10:13 Dose: 125 mls/hr Documented by: Midazolam HCl (Versed 1 Mg/Ml) Confirm Administered Dose 2 mg .ROUTE .STK-MED ONE Stop: 03/07/20 07:06 Nystatin (Mycostatin) 5 ml PO QID [facility] Ondansetron HCl (Zofran) 4 mg IVPUSH Q8H PRN PRN Reason: Nausea/Vomiting Last Admin: 03/06/20 19:26 Dose: 4 mg Documented by: Potassium Chloride (Klor-Con M20) 40 meq PO ONETIME ONE Stop: 03/07/20 10:25 Last Admin: 03/07/20 10:53 Dose: 40 meq Documented by: Potassium Chloride (Klor-Con M20) 40 meq PO ONETIME ONE Stop: 03/07/20 17:01 Last Admin: 03/07/20 17:06 Dose: 40 meq Documented by: Promethazine HCl (Phenergan) 12.5 - 25 mg IV Q8H PRN PRN Reason: Nausea Last Admin: 03/06/20 20:25 Dose: 25 mg Documented by: Propofol (Diprivan 20 Ml) Confirm Administered Dose 200 mg .ROUTE .STK-MED ONE Stop: 03/07/20 07:06 - Exam General: Reports: Alert, Oriented, Cooperative, Mild Distress Lungs: Reports: Clear to Auscultation, Normal Respiratory Effort Cardiovascular: Reports: Regular Rate, Regular Rhythm GI/Abdominal Exam: Soft, No Organomegaly, Tender. No: Distended, Guarding, Rigid, Rebound
== END 2020-03-08 11:55 | disposition home or self-care (01) ==
LOC: JP.ED 17:02 → INTOOBSV 18:08 → JP.MS 18:08
PROVIDERS: ADMIT Surgery; ATTEND Hospitalist
DX: K29.00 Acute gastritis without bleeding (principal); R13.10 Dysphagia, unspecified; K44.9 Diaphragmatic hernia without obstruction or gangrene; A08.4 Viral intestinal infection, unspecified; K20.90 Esophagitis, unspecified without bleeding; I10 Essential (primary) hypertension; F17.210 Nicotine dependence, cigarettes, uncomplicated; E86.0 Dehydration; Z01.812 Encounter for preprocedural laboratory examination; Z20.822 Contact with and (suspected) exposure to COVID-19; Z79.899 Other long term (current) drug therapy; Z88.8 Allergy status to other drugs, medicaments and biological substances; Z98.890 Other specified postprocedural states; Z68.23 Body mass index [BMI] 23.0-23.9, adult
CPT/HCPCS: 36415; 43239; 80053; 83690; 84132; 85025; 85027; 87635; 99284; 99285; A9270; J0780; J2250; J2405; J2550; J2704; J3010; J7030; 88305; 88312; U0002

== ENCOUNTER 2020-04-21 10:31 | Emergency (ER) | payer BC ==
[2020-04-21] MEDS ORDERED: Ondansetron 4 MG Tab.DIS PO ONE (10:40)
[2020-04-21] MEDS ORDERED: Alum Hydrox/Mag Hydrox/Simeth 15 ML, Lidocaine 2% 15 ML PO ONE ×2 (10:40)
[2020-04-21 10:47] VITALS: BP 178/110
[2020-04-21] MEDS ORDERED: Sodium Chloride 0.9% 10 ML Syringe FLUSH PRN (10:51)
--- NOTE | 2020-04-21 10:57 | EDM.PDOC ---
ED HPI GENERAL MEDICAL PROBLEM - General Chief Complaint: Gastrointestinal Problem Stated Complaint: VOMITTING, CHEST DISCOMFORT, TINGLING HANDS Time Seen by Provider: 04/21/20 10:51 Source of Information: Reports: Patient, Old Records, RN History Limitations: Reports: No Limitations - History of Present Illness INITIAL COMMENTS - FREE TEXT/NARRATIVE: 55 yo female with vomiting and chest pain associated with this vomiting was sent to the ER today due to the mention of chest pain. She was watched over night last month here for similar sx's felt to be viral in etiology. Does not have a cardiac hx. Onset of sx's Tuesday. No diarrhea or fever. Smokes cigarettes, but not marijuana. Is dizzy with standing. Not sleeping due to sx's. Went to the clinic and was taken over here to be seen. No hematemesis. Onset: Gradual Onset Date: 04/19/20 Duration: Day(s):, Constant Location: Reports: Chest, Abdomen, Generalized Quality: Reports: Burning (under sternum when she vomits) Severity: Moderate Improves with: Reports: Other (not vomiting) Worsens with: Reports: Other (vomiting) Context: Reports: Other (See HPI) Associated Symptoms: Reports: Malaise, Nausea/Vomiting. 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: Other (see below) (none) - Related Data Allergies Allergy/AdvReac Type Severity Reaction Status Date / Time [id number] Reductase Allergy Unknown Cannot Verified 04/21/20 10:47 Inhibitor Remember Home Meds: Home Meds Iron 18 mg PO DAILY 06/10/13 [History] Niacin 50 mg PO DAILY 06/10/13 [History] [place]-3/DHA/Epa/Fish Oil [Fish Oil Dr 500 mg Softgel] 500 mg PO DAILY 06/10/13 [History] Multivitamin [Multi-Vitamin Daily] 1 tab PO DAILY 08/17/16 [History] Ubidecarenone [Co Q-10] 1 tab PO DAILY 08/17/16 [History] Garlic [Garlique] 5,000 mcg PO DAILY 03/06/20 [History] Metoprolol Succinate 50 mg PO DAILY 03/06/20 [History] Pantoprazole [ProTONIX] 40 mg PO BIDAC #30 tab.cr 03/08/20 [Rx] Past Medical History HEENT History: Reports: Impaired Vision Cardiovascular History: Reports: Hypertension [employer]OR History: Reports: - Past Surgical History GI Surgical History: Reports: Appendectomy, Hernia, Abdominal Social & Family History - Tobacco Use Tobacco Use Status *Q: Current Every Day Tobacco User Years of Tobacco use: 25 Packs/Tins Daily: 0.5 - Caffeine Use Caffeine Use: Reports: None - Alcohol Use Days Per Week of Alcohol Use: 3 Number of Drinks Per Day: 6 Total Drinks Per Week: 18 - Recreational Drug Use Recreational Drug Use: No ED ROS GENERAL - Review of Systems Review Of Systems: See Below Constitutional: Reports: No Symptoms HEENT: Reports: No Symptoms Respiratory: Reports: No Symptoms Cardiovascular: Reports: Chest Pain (substernal and only with vomiting), Lightheadedness GI/Abdominal: Reports: Abdominal Pain (minimal), Nausea, Vomiting. Denies: Black Stool, Bloody Stool, Constipation, Diarrhea, Distension, Hematemesis, Hematochezia : Reports: No Symptoms Musculoskeletal: Reports: No Symptoms Skin: Reports: No Symptoms Neurological: Reports: No Symptoms ED EXAM, GENERAL - Physical Exam Exam: See Below Exam Limited By: No Limitations General Appearance: Alert, WD/WN, Mild Distress, Thin Eye Exam: Bilateral Eye: Normal Inspection Ears: Normal External Exam, Normal Canal, Hearing Grossly Normal Ear Exam: Bilateral Ear: Auricle Normal, Canal Normal Nose: Normal Inspection, No Blood Throat/Mouth: Normal Inspection, Normal Lips, Normal Oropharynx, Normal Voice, No Airway Compromise Head: Atraumatic, Normocephalic Neck: Normal Inspection Respiratory/Chest: No Respiratory Distress, Lungs Clear, Normal Breath Sounds, No Accessory Muscle Use Cardiovascular: Regular Rate, Rhythm, No Edema, Tachycardia GI/Abdominal: Normal Bowel Sounds, Soft, Non-Tender, No Distention Back Exam: Normal Inspection. No: CVA Tenderness (R), CVA Tenderness (L) Extremities: Normal Inspection, Normal Range of Motion, Non-Tender, No Pedal Edema. No: Pedal Edema Neurological: Alert, Oriented, CN II-XII Intact, Normal Cognition, No Motor/Sensory Deficits Psychiatric: Normal Affect, Normal Mood Skin Exam: Warm, Dry, Intact, Normal Color, No Rash #1 Interpretation EKG Date: 04/21/20 Time: 10:50 Rhythm: NSR Rate (Beats/Min): 118 [place]: Normal P-Wave: Present QRS: Normal ST-T: Normal QT: Prolonged Comparison: Change From Previous EKG (Rate increase from 92 to 118 only) Course - Vital Signs Last Recorded V/S: Last Vital Signs Temp 36.8 C 04/21/20 10:46 Pulse 120 H 04/21/20 10:46 Resp 16 04/21/20 10:46 BP 178/110 H 04/21/20 10:46 Pulse Ox 97 04/21/20 10:46 - Orders/Labs/Meds Orders: Active Orders 24 hr Category Date Time Status Cardiac Monitoring [RC] .As Directed Care 04/21/20 10:34 Active EKG Documentation Completion [RC] ASDIRECTED Care 04/21/20 10:34 Active NS + KCl 20mEq/L [Normal Saline with 20 mEq KCl] 1,000 Med 04/21/20 11:45 Active ml IV ASDIRECTED NS + KCl 20mEq/L [Normal Saline with 20 mEq KCl] 1,000 Med 04/21/20 14:15 Active ml IV ASDIRECTED Sodium Chloride 0.9% [Saline Flush] Med 04/21/20 10:51 Active 10 ml FLUSH ASDIRECTED PRN Saline Lock Insert [OM.PC] Routine Oth 04/21/20 10:51 Ordered EKG 12 Lead [EK] Routine Ther 04/21/20 10:33 Ordered Medication Orders Potassium Chloride/Sodium Chloride (Normal Saline With 20 Meq Kcl) 1,000 mls @ 500 mls/hr IV ASDIRECTED TIFFANIE Last Admin: 04/21/20 11:44 Dose: 500 mls/hr Documented by: HILDA Potassium Chloride/Sodium Chloride (Normal Saline With 20 Meq Kcl) 1,000 mls @ 500 mls/hr IV ASDIRECTED TIFFANIE Last Admin: 04/21/20 14:15 Dose: 500 mls/hr Documented by: PREILOR Sodium Chloride (Saline Flush) 10 ml FLUSH ASDIRECTED PRN PRN Reason: Keep Vein Open Last Admin: 04/21/20 11:01 Dose: 10 ml Documented by: HILDA Labs: Laboratory Tests 04/21/20 04/21/20 04/21/20 Range/Units 11:00 11:00 11:39 WBC 10.6 (4.5-11.0) K/uL RBC 4.49 (3.30-5.50) M/uL Hgb 15.0 D (12.0-15.0) g/dL Hct 44.9 (36.0-48.0) % MCV 100 H (80-98) fL MCH 33 H (27-31) pg MCHC 33 (32-36) % Plt Count 201 (150-400) K/uL Sodium 137 L (140-148) mmol/L Potassium 2.9 L* (3.6-5.2) mmol/L Chloride 87 L (100-108) mmol/L Carbon Dioxide 34 H (21-32) mmol/L Anion Gap 18.9 H (5.0-14.0) mmol/L BUN 28 H (7-18) mg/dL Creatinine 1.6 H D (0.6-1.0) mg/dL Est Cr Clr Drug Dosing 31.42 mL/min Estimated GFR (MDRD) 33 L (>60) Glucose 222 H (74-106) mg/dL Calcium 9.8 D (8.5-10.1) mg/dL Magnesium 1.3 L (1.8-2.4) mg/dL Troponin I < 0.017 (0.000-0.056) ng/mL Meds: Medications Generic Name Dose Route Start Last Admin Trade Name Freq PRN Reason Stop Dose Admin Potassium Chloride/Sodium Chloride 1,000 mls @ 500 mls/hr 04/21/20 11:45 04/21/20 11:44 Normal Saline With 20 Meq Kcl IV 500 mls/hr ASDIRECTED TIFFANIE Administration Potassium Chloride/Sodium Chloride 1,000 mls @ 500 mls/hr 04/21/20 14:15 04/21/20 14:15 Normal Saline With 20 Meq Kcl IV 500 mls/hr ASDIRECTED TIFFANIE Administration Sodium Chloride 10 ml 04/21/20 10:51 04/21/20 11:01 Saline Flush FLUSH 10 ml ASDIRECTED PRN Administration Keep Vein Open Discontinued Medications Generic Name Dose Route Start Last Admin Trade Name Freq PRN Reason Stop Dose Admin Al Hydroxide/Mg Hydroxide 15 0 ml 04/21/20 10:40 04/21/20 11:28 ml/ Lidocaine HCl 15 ml PO 04/21/20 10:41 15 ml ONETIME ONE Administration Magnesium Sulfate 2 gm in 50 mls @ 25 mls/hr 04/21/20 12:03 04/21/20 12:25 Magnesium Sulfate In Water 2 Gm/50 Ml IV 04/21/20 14:02 25 mls/hr ONETIME ONE Administration Magnesium Oxide 800 mg 04/21/20 12:03 04/21/20 12:25 Magnesium Oxide PO 04/21/20 12:04 800 mg ONETIME ONE Administration Metoclopramide HCl 5 mg 04/21/20 11:39 04/21/20 11:44 Reglan IVPUSH 04/21/20 11:40 5 mg ONETIME ONE Administration Ondansetron HCl 4 mg 04/21/20 10:40 04/21/20 10:51 Zofran Odt PO 04/21/20 10:41 4 mg ONETIME ONE Administration Departure - Departure Time of Disposition: 16:00 Disposition: Home, Self-Care 01 Condition: Fair Clinical Impression: Hypokalemia, Mild dehydration, Hypomagnesemia Nausea and vomiting Qualifiers: Vomiting type: unspecified Vomiting Intractability: intractable Qualified Code(s): R11.2 - Nausea with vomiting, unspecified Instructions: Nausea and Vomiting, Adult, [id number] Referrals: Roxanne Charles PA [Primary Care Provider] - Forms: ED Department Discharge Additional Instructions: Use Zofran ODT 4 mg every 6 hrs as needed for nausea control. Sip on something like Gatorade today and then tomorrow advance your diet as tolerated. If you are still experiencing nausea by Tuesday you should get rechecked. Avoid ibuprofen, Aleve, or aspirin as these can irritate your stomach. Rather, stick with acetaminophen for pain control if this is needed. Sepsis Event Note (ED) - Evaluation Sepsis Screening Result: No Definite Risk - Focused Exam Vital Signs: Vital Signs Temp Pulse Resp BP Pulse Ox 04/21/20 10:46 36.8 C 120 H 16 178/110 H 97 - My Orders Last 24 Hours: My Active Orders 04/21/20 10:33 EKG 12 Lead [EK] Routine 04/21/20 10:34 Cardiac Monitoring [RC] .As Directed EKG Documentation Completion [RC] ASDIRECTED 04/21/20 10:51 Sodium Chloride 0.9% [Saline Flush] 10 ml FLUSH ASDIRECTED PRN Saline Lock Insert [OM.PC] Routine 04/21/20 11:45 NS + KCl 20mEq/L [Normal Saline with 20 mEq KCl] 1,000 ml IV ASDIRECTED 04/21/20 14:15 NS + KCl 20mEq/L [Normal Saline with 20 mEq KCl] 1,000 ml IV ASDIRECTED - Assessment/Plan Last 24 Hours: My Active Orders 04/21/20 10:33 EKG 12 Lead [EK] Routine 04/21/20 10:34 Cardiac Monitoring [RC] .As Directed EKG Documentation Completion [RC] ASDIRECTED 04/21/20 10:51 Sodium Chloride 0.9% [Saline Flush] 10 ml FLUSH ASDIRECTED PRN Saline Lock Insert [OM.PC] Routine 04/21/20 11:45 NS + KCl 20mEq/L [Normal Saline with 20 mEq KCl] 1,000 ml IV ASDIRECTED 04/21/20 14:15 NS + KCl 20mEq/L [Normal Saline with 20 mEq KCl] 1,000 ml IV ASDIRECTED
[2020-04-21] MEDS ORDERED: Metoclopramide 10 MG/2 ML SDV IVPUSH ONE (11:39)
[2020-04-21] MEDS ORDERED: NS + KCl 20mEq/L 1,000 ML IV SCH ×2 (11:45→14:15)
[2020-04-21] MEDS ORDERED: Magnesium Oxide 400 MG Tab PO ONE (12:03)
[2020-04-21] MEDS ORDERED: Magnesium Sulfate/Water 2 GM/50 ML BAG IV ONE (12:03)
[2020-04-21 16:41] VITALS: PULSE 121
== END 2020-04-21 16:41 | disposition home or self-care (01) ==
LOC: JP.ED 10:31
DX: E86.0 Dehydration (principal); E83.42 Hypomagnesemia; E87.6 Hypokalemia; I10 Essential (primary) hypertension; F17.210 Nicotine dependence, cigarettes, uncomplicated; Z79.899 Other long term (current) drug therapy; Z88.8 Allergy status to other drugs, medicaments and biological substances
CPT/HCPCS: 36415; 80048; 83735; 84484; 85027; 93005; 96365; 96366; 96368; 96375; 99284; 99285; A9270; J2765; J3475; J3480

== ENCOUNTER 2020-07-09 11:56 | Emergency (ER) | payer BC ==
[2020-07-09] MEDS ORDERED: Potassium Chloride 20 MEQ Tab.ER PO ONE (12:35)
[2020-07-09] MEDS ORDERED: Potassium Chloride 20 MEQ in Premix Bag 1 BAG IV ONE (12:35)
[2020-07-09] MEDS ORDERED: Potassium Chloride 20 MEQ, Lidocaine 1% 2 ML in Sodium Chloride 0.9% 100 ML IV ONE (13:00)
--- NOTE | 2020-07-09 13:08 | EDM.PDOC ---
ED HPI GENERAL MEDICAL PROBLEM - General Chief Complaint: General Stated Complaint: LOW POTASSIUM Time Seen by Provider: 07/09/20 12:30 Source of Information: Reports: Patient, Family, Provider History Limitations: Reports: No Limitations - History of Present Illness INITIAL COMMENTS - FREE TEXT/NARRATIVE: 55-year-old female that apparently has been struggling with some persistent nausea and vomiting over the past several days, being followed at the clinic and was found to have a potassium of 3.0 yesterday. She is on oral potassium replacement but has not taken any in the last 4 days because of her nausea. She was given IV fluids yesterday, and told to come in today for lab recheck. She did not take her potassium this morning but she does feel somewhat better, her potassium came back 2.9 which flagged as "critical". She was called from the clinic and told to come to the emergency room. Since she does not have significant symptoms at this time, I am assuming it is for potassium replacement, I will try to get a hold of Dr. Phelan. Onset: Unknown/Unsure Associated Symptoms: Reports: Nausea/Vomiting, Weakness - Related Data Allergies Allergy/AdvReac Type Severity Reaction Status Date / Time Tesevom-Zsi-Jyv Reductase Allergy Unknown Cannot Verified 07/09/20 12:07 Inhibitor Remember Home Meds: Home Meds Iron 325 mg PO DAILY 06/10/13 [History] Niacin 500 mg PO DAILY 06/10/13 [History] Multivitamin [Multi-Vitamin Daily] 1 tab PO DAILY 08/17/16 [History] Ubidecarenone [Co Q-10] 1 tab PO DAILY 08/17/16 [History] Garlic [Garlique] 1,000 mcg PO DAILY 03/06/20 [History] Metoprolol Succinate 50 mg PO DAILY 03/06/20 [History] Ascorbic Acid 500 mg PO DAILY 07/08/20 [History] Biotin 10,000 mcg PO DAILY 07/08/20 [History] Flaxseed/Omega3,6,9/Fatty Acid [Flax Seed Oil 1,300 mg Softgel] 1 each PO DAILY 07/08/20 [History] Milk Thistle 500 mg PO DAILY 07/08/20 [History] Past Medical History HEENT History: Reports: Impaired Vision Cardiovascular History: Reports: Hypertension 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: - Infectious Disease History Infectious Disease History: Reports: Chicken Pox - Past Surgical History GI Surgical History: Reports: Appendectomy, Hernia, Abdominal Social & Family History - Tobacco Use Tobacco Use Status *Q: Current Every Day Tobacco User Years of Tobacco use: 25 Packs/Tins Daily: 0.5 Used Tobacco, but Quit: No Second Hand Smoke Exposure: Yes - Caffeine Use Caffeine Use: Reports: Coffee, Tea - Alcohol Use Days Per Week of Alcohol Use: 3 Number of Drinks Per Day: 3 Total Drinks Per Week: 9 - Recreational Drug Use Recreational Drug Use: No ED ROS GENERAL - Review of Systems Review Of Systems: See Below Constitutional: Reports: Malaise, Decreased Appetite. Denies: Fever, Chills Respiratory: Denies: Shortness of Breath GI/Abdominal: Reports: Constipation, Nausea, Vomiting. Denies: Diarrhea : Reports: No Symptoms Skin: Reports: No Symptoms Neurological: Denies: Headache ED EXAM, GENERAL - Physical Exam Exam: See Below Exam Limited By: No Limitations General Appearance: Alert, No Apparent Distress Eye Exam: Bilateral Eye: Normal Inspection Head: Atraumatic Respiratory/Chest: No Respiratory Distress, Lungs Clear Cardiovascular: Regular Rate, Rhythm. No: Extra Beats GI/Abdominal: Tender (Mild diffuse discomfort with palpation but no masses no focal tenderness) Neurological: Alert, Oriented, Other (Slight resting tremor of the hands) Psychiatric: Normal Affect, Normal Mood Skin Exam: Warm, Dry Course - Vital Signs Last Recorded V/S: Last Vital Signs Temp 97.2 F 07/09/20 12:18 Pulse 81 07/09/20 15:54 Resp 16 07/09/20 12:18 BP 130/93 H 07/09/20 15:54 Pulse Ox 96 07/09/20 13:52 - Orders/Labs/Meds Meds: Medications Discontinued Medications Generic Name Dose Route Start Last Admin Trade Name Freq PRN Reason Stop Dose Admin Potassium Chloride 20 meq/ 112 mls @ 56 mls/hr 07/09/20 13:00 07/09/20 13:21 Lidocaine HCl 2 ml/ Sodium IV 07/09/20 14:59 56 mls/hr Chloride ONETIME ONE Administration Potassium Chloride 20 meq 07/09/20 12:35 07/09/20 12:51 Potassium Chloride 20 Meq Tab.Er PO 07/09/20 12:36 20 meq ONETIME ONE Administration - Re-Assessments/Exams Free Text/Narrative Re-Assessment/Exam: 07/09/20 15:53 Patient was given 20 mEq of oral potassium and 20 mg equivalents of IV potassium. She was allowed to have fluids, and was monitored for 2 hours. She had no nausea or vomiting and tolerated the treatment well. She is going to resume her oral potassium tomorrow morning, avoid any alcohol intake, concentrate on staying hydrated and recheck on Tuesday next week with her primary provider to recheck her potassium. Departure - Departure Time of Disposition: 16:04 Disposition: Home, Self-Care 01 Clinical Impression: Hypokalemia - Discharge Information Instructions: Hypokalemia Referrals: Roxanne Charles PA [Primary Care Provider] - Forms: ED Department Discharge Care Plan Goals: Start your oral potassium tomorrow morning as directed, stay hydrated with water and increase activity and diet as tolerated. Avoid alcohol and take your other medications as directed. Recheck next Tuesday as planned, or return anytime if worsening or concerns. Sepsis Event Note (ED) - Evaluation Sepsis Screening Result: No Definite Risk
[2020-07-09 15:54] VITALS: BP 130/93; PULSE 81
== END 2020-07-09 16:04 | disposition home or self-care (01) ==
LOC: JP.ED 11:56
DX: E87.6 Hypokalemia (principal); I10 Essential (primary) hypertension; Z88.8 Allergy status to other drugs, medicaments and biological substances; Z72.0 Tobacco use
CPT/HCPCS: 96365; 96366; 99284; A9270; J2001; J3480

== ENCOUNTER 2021-01-08 07:53 | Emergency (ER) | payer BC ==
[2021-01-08 09:17] LABS: CORONAVIRUS COVID-19 NAA NEGATIVE (NEGATIVE)
[2021-01-08] MEDS ORDERED: Sodium Chloride 0.9% 10 ML Syringe FLUSH PRN (09:32)
[2021-01-08] MEDS ORDERED: Ondansetron 4 MG/2 ML SDV IVPUSH ONE (09:33)
--- NOTE | 2021-01-08 09:35 | EDM.PDOC ---
ED HPI GENERAL MEDICAL PROBLEM - General Chief Complaint: Gastrointestinal Problem Stated Complaint: DIARRHEA,CANT KEEP ANYTHING DOWN Time Seen by Provider: 01/08/21 09:28 Source of Information: Reports: Patient, Family, RN Notes Reviewed History Limitations: Reports: No Limitations - History of Present Illness INITIAL COMMENTS - FREE TEXT/NARRATIVE: 55-year-old female presents emergency department with a complaint of nausea and vomiting she states been ill for a couple of days there is no other sick contacts that she is aware of she has been vaccinated for Covid this summer. Has not had any fevers has difficulty keeping any liquids down feels very dehydrated. Abdomen Pain Score (Numeric/FACES): 7 - Related Data Allergies Allergy/AdvReac Type Severity Reaction Status Date / Time [id number]-[id number] Reductase Allergy Unknown Cannot Verified 01/08/21 08:19 Inhibitor Remember [Nncnyeh-Uip-Efc Reductase Inhibitor] Home Meds: Home Meds Iron 325 mg PO DAILY 06/10/13 [History] Niacin 500 mg PO DAILY 06/10/13 [History] Multivitamin [Multi-Vitamin Daily] 1 tab PO DAILY 08/17/16 [History] Ubidecarenone [Co Q-10] 1 tab PO DAILY 08/17/16 [History] Garlic [Garlique] 1,000 mcg PO DAILY 03/06/20 [History] Metoprolol Succinate 50 mg PO DAILY 03/06/20 [History] Ascorbic Acid 500 mg PO DAILY 07/08/20 [History] Flaxseed/Omega3,6,9/Fatty Acid [Flax Seed Oil 1,300 mg Softgel] 1 each PO DAILY 07/08/20 [History] Milk Thistle 500 mg PO DAILY 07/08/20 [History] Past Medical History HEENT History: Reports: Impaired Vision Cardiovascular History: Reports: Hypertension 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 Denies: Fever HEENT: Reports: No Symptoms Respiratory: Reports: No Symptoms Cardiovascular: Reports: No Symptoms GI/Abdominal: Reports: Abdominal Pain, Nausea, Vomiting : Reports: No Symptoms ED EXAM, GI/ABD - Physical Exam Exam: See Below Exam Limited By: No Limitations General Appearance: Alert, Mild Distress Respiratory/Chest: No Respiratory Distress, Lungs Clear, Normal Breath Sounds, No Accessory Muscle Use, Chest Non-Tender Cardiovascular: Tachycardia GI/Abdominal Exam: Soft, Non-Tender Course - Vital Signs Last Recorded V/S: Last Vital Signs Temp 97.0 F 01/08/21 08:17 Pulse 107 H 01/08/21 12:29 Resp 20 01/08/21 12:29 BP 186/98 H 01/08/21 12:29 Pulse Ox 98 01/08/21 12:29 - Orders/Labs/Meds Orders: Active Orders 24 hr Category Date Time Status Peripheral IV Care [RC] . DIRECTED Care 01/08/21 09:33 Active Lactated Ringers [Ringers, Lactated] 1,000 ml Med 01/08/21 09:45 Active IV ASDIRECTED Sodium Chloride 0.9% [Normal Saline] 1,000 ml Med 01/08/21 12:15 Active IV ASDIRECTED Sodium Chloride 0.9% [Saline Flush] Med 01/08/21 09:32 Active 10 ml FLUSH ASDIRECTED PRN Isolation [COMM] Stat Oth 01/08/21 08:07 Ordered Peripheral IV Insertion Adult [OM.PC] Urgent Oth 01/08/21 09:32 Ordered Medication Orders Lactated Ringer's (Ringers, Lactated) 1,000 mls @ 999 mls/hr IV ASDIRECTED [facility] Last Admin: 01/08/21 09:59 Dose: 999 mls/hr Documented by: PREILOR Sodium Chloride (Normal Saline) 1,000 mls @ 500 mls/hr IV ASDIRECTED TIFFANIE Last Admin: 01/08/21 12:24 Dose: 500 mls/hr Documented by: PREILOR Sodium Chloride (Sodium Chloride 0.9% 10 Ml Syringe) 10 ml FLUSH ASDIRECTED PRN PRN Reason: Keep Vein Open Last Admin: 01/08/21 10:00 Dose: 10 ml Documented by: PREILOR Labs: Laboratory Tests 01/08/21 01/08/21 01/08/21 Range/Units 08:22 09:48 09:48 WBC 13.6 H (4.5-11.0) K/uL RBC 4.69 (3.30-5.50) M/uL Hgb 16.0 H (12.0-15.0) g/dL Hct 45.8 (36.0-48.0) % MCV 98 (80-98) fL MCH 34 H (27-31) pg MCHC 35 (32-36) % Plt Count 378 (150-400) K/uL Neut % (Auto) 84.8 H (36-66) % Lymph % (Auto) 9.0 L (24-44) % Union % (Auto) 5.8 (2-6) % Eos % (Auto) 0.0 L (2-4) % Baso % (Auto) 0.4 (0-1) % Sodium 143 (140-148) mmol/L Potassium 3.3 L (3.6-5.2) mmol/L Chloride 95 L (100-108) mmol/L Carbon Dioxide 31 (21-32) mmol/L Anion Gap 20.3 H (5.0-14.0) mmol/L BUN 17 (7-18) mg/dL Creatinine 1.1 H (0.6-1.0) mg/dL Est Cr Clr Drug Dosing 45.70 mL/min Estimated GFR (MDRD) 52 L (>60) Glucose 185 H (74-106) mg/dL Lactic Acid (0.4-2.0) mmol/L Calcium 9.8 (8.5-10.1) mg/dL Total Bilirubin 1.4 H D (0.2-1.0) mg/dL AST 53 H (15-37) U/L ALT 87 H (12-78) U/L Alkaline Phosphatase 77 (46-116) U/L Total Protein 9.1 H (6.4-8.2) g/dL Albumin 4.9 (3.4-5.0) g/dL Globulin 4.2 H (2.3-3.5) g/dL Albumin/Globulin Ratio 1.2 (1.2-2.2) Influenza Type A RNA Negative (NEGATIVE) RSV RNA (INAAT) Negative (NEGATIVE) Influenza Type B RNA Negative (NEGATIVE) SARS-CoV-2 RNA (DAYSI) Negative (NEGATIVE) 01/08/21 Range/Units 09:48 WBC (4.5-11.0) K/uL RBC (3.30-5.50) M/uL Hgb (12.0-15.0) g/dL Hct (36.0-48.0) % MCV (80-98) fL MCH (27-31) pg MCHC (32-36) % Plt Count (150-400) K/uL Neut % (Auto) (36-66) % Lymph % (Auto) (24-44) % Union % (Auto) (2-6) % Eos % (Auto) (2-4) % Baso % (Auto) (0-1) % Sodium (140-148) mmol/L Potassium (3.6-5.2) mmol/L Chloride (100-108) mmol/L Carbon Dioxide (21-32) mmol/L Anion Gap (5.0-14.0) mmol/L BUN (7-18) mg/dL Creatinine (0.6-1.0) mg/dL Est Cr Clr Drug Dosing mL/min Estimated GFR (MDRD) (>60) Glucose (74-106) mg/dL Lactic Acid 1.7 (0.4-2.0) mmol/L Calcium (8.5-10.1) mg/dL Total Bilirubin (0.2-1.0) mg/dL AST (15-37) U/L ALT (12-78) U/L Alkaline Phosphatase (46-116) U/L Total Protein (6.4-8.2) g/dL Albumin (3.4-5.0) g/dL Globulin (2.3-3.5) g/dL Albumin/Globulin Ratio (1.2-2.2) Influenza Type A RNA (NEGATIVE) RSV RNA (INAAT) (NEGATIVE) Influenza Type B RNA (NEGATIVE) SARS-CoV-2 RNA (DAYSI) (NEGATIVE) Meds: Medications Generic Name Dose Route Start Last Admin Trade Name Freq PRN Reason Stop Dose Admin Lactated Ringer's 1,000 mls @ 999 mls/hr 01/08/21 09:45 01/08/21 09:59 Ringers, Lactated IV 999 mls/hr ASDIRECTED TIFFANIE Administration Sodium Chloride 1,000 mls @ 500 mls/hr 01/08/21 12:15 01/08/21 12:24 Normal Saline IV 500 mls/hr ASDIRECTED TIFFANIE Administration Sodium Chloride 10 ml 01/08/21 09:32 01/08/21 10:00 Sodium Chloride 0.9% 10 Ml Syringe FLUSH 10 ml ASDIRECTED PRN Administration Keep Vein Open Discontinued Medications Generic Name Dose Route Start Last Admin Trade Name Freq PRN Reason Stop Dose Admin Lorazepam 1 mg 01/08/21 12:13 01/08/21 12:25 Lorazepam 2 Mg/Ml Sdv IVPUSH 01/08/21 12:14 1 mg ONETIME ONE Administration Ondansetron HCl 4 mg 01/08/21 09:33 01/08/21 10:00 Ondansetron 4 Mg/2 Ml Sdv IVPUSH 01/08/21 09:34 4 mg ONETIME ONE Administration Departure - Departure Time of Disposition: 15:01 Disposition: Home, Self-Care 01 Condition: Fair Clinical Impression: Gastroenteritis - Discharge Information Instructions: Dehydration, Adult, [id number], Viral Gastroenteritis, Adult, [id number] Referrals: Roxanne Charles PA [Primary Care Provider] - Forms: ED Department Discharge Additional Instructions: Continue to push fluids small amounts, use the Zofran as needed for nausea and vomiting symptoms, please followup with your primary care provider in 3-5 days if not better, please call return to the emergency department with worsening of symptoms. Sepsis Event Note (ED) - Focused Exam Vital Signs: Vital Signs Temp Pulse Resp BP Pulse Ox 01/08/21 12:29 107 H 20 186/98 H 98 01/08/21 10:00 96 17 171/87 H 95 01/08/21 08:17 97.0 F 114 H 16 154/105 H 95 - My Orders Last 24 Hours: My Active Orders 01/08/21 08:07 Isolation [COMM] Stat 01/08/21 09:32 Sodium Chloride 0.9% [Saline Flush] 10 ml FLUSH ASDIRECTED PRN Peripheral IV Insertion Adult [OM.PC] Urgent 01/08/21 09:33 Peripheral IV Care [RC] . DIRECTED 01/08/21 09:45 Lactated Ringers [Ringers, Lactated] 1,000 ml IV ASDIRECTED 01/08/21 12:15 Sodium Chloride 0.9% [Normal Saline] 1,000 ml IV ASDIRECTED - Assessment/Plan Last 24 Hours: My Active Orders 01/08/21 08:07 Isolation [COMM] Stat 01/08/21 09:32 Sodium Chloride 0.9% [Saline Flush] 10 ml FLUSH ASDIRECTED PRN Peripheral IV Insertion Adult [OM.PC] Urgent 01/08/21 09:33 Peripheral IV Care [RC] . DIRECTED 01/08/21 09:45 Lactated Ringers [Ringers, Lactated] 1,000 ml IV ASDIRECTED 01/08/21 12:15 Sodium Chloride 0.9% [Normal Saline] 1,000 ml IV ASDIRECTED Plan: Assessment Acuity = acute Site and laterality = gastroenteritis Etiology = probably viral Manifestations = none Location of injury = Home Lab values = WBC elevated 13.6 consistent leukocytosis, potassium low at 3.3 consistent hypokalemia creatinine elevated 1.16 consistent with acute renal failure stage G3 a AST elevated 57 ALT elevated 87 consistent with elevated liver enzymes Covid was negative Plan Good improvement with combination Zofran and Ativan for nausea and vomiting symptoms, received 2 L fluid in the emergency department before urination. [place] significantly better however follow-up primary care 3 to 5 days if not improved This note was dictated using [employer] voice recognition software please call with any questions on syntax or grammar.
[2021-01-08] MEDS ORDERED: Lactated Ringers 1,000 ML IV SCH (09:45)
[2021-01-08] MEDS ORDERED: LORazepam 2 MG/ML SDV IVPUSH ONE (12:13)
[2021-01-08] MEDS ORDERED: Sodium Chloride 0.9% 1,000 ML IV SCH (12:15)
[2021-01-08 12:30] VITALS: BP 186/98; PULSE 107
== END 2021-01-08 15:17 | disposition home or self-care (01) ==
LOC: JP.ED 07:53
DX: K52.9 Noninfective gastroenteritis and colitis, unspecified (principal); I10 Essential (primary) hypertension; Z88.8 Allergy status to other drugs, medicaments and biological substances; Z72.0 Tobacco use; Z20.822 Contact with and (suspected) exposure to COVID-19
CPT/HCPCS: 0241U; 36415; 80053; 83605; 85025; 96361; 96374; 96375; 99284; J2060; J2405; J7030; J7120

== ENCOUNTER 2021-03-31 06:27 | Day surgery (SDC) | payer BC ==
[2021-03-31] MEDS ORDERED: Sodium Chloride 0.9% 1,000 ML IV SCH (07:00)
[2021-03-31] MEDS ORDERED: Midazolam 1 MG/ML 2 ML SDV ONE (07:29)
[2021-03-31] MEDS ORDERED: fentaNYL 100 MCG/2 ML SDV ONE (07:29)
[2021-03-31] MEDS ORDERED: Propofol 200 MG/20 ML SDV ONE ×2 (07:29→08:20)
[2021-03-31 10:37] VITALS: BP 166/94; PULSE 74
== END 2021-03-31 10:40 | disposition home or self-care (01) ==
LOC: JP.SDS 06:27
PROVIDERS: ATTEND Surgery
DX: Z12.11 Encounter for screening for malignant neoplasm of colon (principal); K21.9 Gastro-esophageal reflux disease without esophagitis; F17.200 Nicotine dependence, unspecified, uncomplicated; Z88.8 Allergy status to other drugs, medicaments and biological substances
CPT/HCPCS: 45378; J2250; J2704; J3010; J7030

== ENCOUNTER 2021-11-25 15:52 | Emergency (ER) | payer BC ==
[2021-11-25] MEDS: Lactated Ringers 1,000 ML IV SCH (16:51)
[2021-11-25] MEDS: Sodium Chloride 0.9% 10 ML Syringe FLUSH PRN (16:52)
[2021-11-25 16:53] LABS: ESTIMATED GFR 86 mL/min (>60)
[2021-11-25 17:40] VITALS: BP 151/85; PULSE 75
== END 2021-11-25 17:52 | disposition home or self-care (01) ==
LOC: JP.ED 15:52
DX: K92.1 Melena (principal); I10 Essential (primary) hypertension; F17.210 Nicotine dependence, cigarettes, uncomplicated; Z88.6 Allergy status to analgesic agent; Z79.899 Other long term (current) drug therapy; Z90.49 Acquired absence of other specified parts of digestive tract
CPT/HCPCS: 36415; 80053; 82272; 83605; 85025; 96360; 99283; J3490; J7120

== ENCOUNTER 2022-02-17 06:30 | Emergency (ER) | payer BC ==
[2022-02-17 07:53] LABS: ESTIMATED GFR 59 mL/min (>60)
[2022-02-17 08:11] LABS: CORONAVIRUS COVID-19 NAA NEGATIVE (NEGATIVE)
[2022-02-17 08:47] VITALS: BP 128/77; PULSE 67
== END 2022-02-17 09:39 | disposition home or self-care (01) ==
LOC: JP.ED 06:30
DX: F10.10 Alcohol abuse, uncomplicated (principal); E78.00 Pure hypercholesterolemia, unspecified; I10 Essential (primary) hypertension; D64.9 Anemia, unspecified; Y90.5 Blood alcohol level of 100-119 mg/100 ml; Z72.0 Tobacco use; Z88.8 Allergy status to other drugs, medicaments and biological substances; Z79.899 Other long term (current) drug therapy; Z20.822 Contact with and (suspected) exposure to COVID-19
CPT/HCPCS: 0241U; 36415; 80053; 80305; 80307; 85025; 99284

== ENCOUNTER 2022-02-17 18:48 | Emergency (ER) | payer BC ==
[2022-02-17] MEDS ORDERED: OLANZapine 5 MG Tab PO ONE (19:16)
[2022-02-17 19:50] LABS: ESTIMATED GFR 53 mL/min (>60)
[2022-02-17] MEDS ORDERED: Haloperidol 5 MG Tab PO ONE (22:00)
[2022-02-18] MEDS ORDERED: LORazepam 1 MG Tab PO PRN (01:59)
[2022-02-18 02:09] VITALS: BP 125/73; PULSE 90
== END 2022-02-18 08:32 | disposition home or self-care (01) ==
LOC: JP.ED 18:48
DX: F10.132 Alcohol abuse with withdrawal with perceptual disturbance (principal); R44.1 Visual hallucinations; E78.00 Pure hypercholesterolemia, unspecified; I10 Essential (primary) hypertension; Y90.0 Blood alcohol level of less than 20 mg/100 ml; Z72.0 Tobacco use; Z88.8 Allergy status to other drugs, medicaments and biological substances; Z79.899 Other long term (current) drug therapy
CPT/HCPCS: 36415; 70450; 80053; 80307; 99285; A9270

== ENCOUNTER 2022-07-23 12:05 | Emergency (ER) | payer SELFPAY ==
[2022-07-23 12:19] VITALS: BP 180/98; PULSE 123
== END 2022-07-23 13:22 | disposition left against medical advice (07) ==
LOC: JP.ED 12:05
DX: Z53.29 Procedure and treatment not carried out because of patient's decision for other reasons (principal); I10 Essential (primary) hypertension; Z88.8 Allergy status to other drugs, medicaments and biological substances; Z72.0 Tobacco use; X58.XXXA Exposure to other specified factors, initial encounter
CPT/HCPCS: 99281

== ENCOUNTER 2022-07-24 09:41 | Emergency (ER) | payer SELFPAY | END 2022-07-24 14:45 | disposition left against medical advice (07) | LOC: JP.ED 09:41 | DX: Z53.21 Procedure and treatment not carried out due to patient leaving prior to being seen by health care provider (principal) ==

== ENCOUNTER 2022-07-25 07:51 | Emergency (ER) | payer SELFPAY ==
[2022-07-25] MEDS ORDERED: Sodium Chloride 0.9% 10 ML Syringe FLUSH PRN ×2 (08:34)
[2022-07-25] MEDS ORDERED: Thiamine 100 MG in Sodium Chloride 0.9% 10 ML IV ONE (08:34)
[2022-07-25] MEDS ORDERED: Magnesium Sulfate/Water 2 GM in Premix Bag 1 BAG IV ONE (08:34)
[2022-07-25] MEDS ORDERED: Folic Acid 50 MG/10 ML MDV SUBCUT ONE (08:34)
[2022-07-25] MEDS ORDERED: Ondansetron 4 MG/2 ML SDV IM ONE (08:34)
[2022-07-25] MEDS ORDERED: Pantoprazole 40 MG Vial IVPUSH ONE (08:36)
[2022-07-25] MEDS ORDERED: Sodium Chloride 0.9% 1,000 ML IV SCH ×2 (08:45→13:15)
[2022-07-25 08:52] LABS: BASOPHILS ABSOLUTE AUTO 0.04 K/uL (0.00-0.10); BASOPHILS PERCENT AUTO 0.2 % (0.1-1.3); HEMATOCRIT 43.6 % (34.3-46.0); HEMOGLOBIN 15.7 g/dL (11.2-15.5); IMMATURE GRAN ABSOLUTE AUTO 0.12 K/uL (0.00-0.23); IMMATURE GRAN PERCENT AUTO 0.7 % (0.0-0.7); LYMPHOCYTES ABSOLUTE AUTO 1.74 K/uL (0.8-3.3); LYMPHOCYTES PERCENT AUTO 10.1 % (11.4-47.7); MEAN CORPUSCULAR HEMOGLOBIN 33.9 pg (31.6-35.5); MEAN CORPUSCULAR VOLUME 94.2 fL (81.4-99.0); MONOCYTES ABSOLUTE AUTO 0.75 K/uL (0.20-0.90); MONOCYTES PERCENT AUTO 4.3 % (3.3-12.6); NEUTROPHILS ABSOLUTE AUTO 14.65 K/uL (1.0-7.6); NEUTROPHILS PERCENT AUTO 84.7 % (40.0-78.1); PLATELET COUNT,PLT 251 K/uL (130-375); RED BLOOD CELL COUNT 4.63 M/uL (3.77-5.24); WHITE BLOOD CELL COUNT,WBC 17.3 K/uL (3.2-11.0)
[2022-07-25] MEDS ORDERED: Thiamine 100 MG in Sodium Chloride 0.9% 50 ML IV ONE (09:00)
[2022-07-25] MEDS ORDERED: Folic Acid 1 MG in Sodium Chloride 0.9% 50 ML IV ONE (09:00)
[2022-07-25 09:15] LABS: A/G RATIO 0.9 (1.2-2.2); ALANINE AMINOTRANSFERASE,ALT 68 U/L (12-78); ALBUMIN 4.4 g/dL (3.4-5.0); ALKALINE PHOSPHATASE 76 U/L (46-116); ASPARTATE AMNIOTRANSFERASE,AST 51 U/L (15-37); BILIRUBIN TOTAL 1.3 mg/dL (0.2-1.0); BLOOD UREA NITROGEN,BUN 22 mg/dL (7-18); CALCIUM 9.8 mg/dL (8.5-10.1); CARBON DIOXIDE,CO2 35 mmol/L (21-32); CHLORIDE,CL 85 mmol/L (100-108); CREATININE 1.5 mg/dL (0.6-1.0); EST CRCL DRUG DOSING (CG) 32.73 mL/min; ESTIMATED GFR 40 mL/min (>60); GLUCOSE RANDOM 150 mg/dL (74-106); PROTEIN TOTAL,TP 9.2 g/dL (6.4-8.2); SODIUM,NA 132 mmol/L (140-148)
[2022-07-25] MEDS ORDERED: Ondansetron 4 MG/2 ML SDV IV ONE (09:15)
[2022-07-25 09:20] LABS: ANION GAP 14.7 mmol/L (5.0-14.0); POTASSIUM,K 2.7 mmol/L (3.6-5.2)
[2022-07-25] MEDS ORDERED: Potassium Chloride Riders 40 MEQ in Premix Bag 1 BAG IV ONE (09:27)
[2022-07-25] MEDS ORDERED: Potassium Chloride 20 MEQ Tab.ER PO ONE (09:27)
[2022-07-25] MEDS: Potassium Chloride 10 MEQ in Premix Bag 1 BAG IV SCH ×4 (09:44→13:15)
[2022-07-25 14:23] VITALS: BP 182/104; PULSE 84
[2022-07-25] MEDS ORDERED: Diazepam 5 MG Tab PO ONE (15:20)
== END 2022-07-25 15:39 | disposition home or self-care (01) ==
LOC: JP.ED 07:51
DX: F10.132 Alcohol abuse with withdrawal with perceptual disturbance (principal); E87.6 Hypokalemia; E78.00 Pure hypercholesterolemia, unspecified; I10 Essential (primary) hypertension; F17.210 Nicotine dependence, cigarettes, uncomplicated; Z88.8 Allergy status to other drugs, medicaments and biological substances; Z79.899 Other long term (current) drug therapy
CPT/HCPCS: 36415; 80053; 80307; 85025; 85610; 96361; 96365; 96366; 96367; 96368; 96375; 99284; A9270; C9113; J2405; J3360; J3411; J3475; J3480; J3490; J7030

== ENCOUNTER 2022-12-22 22:24 | Emergency (ER) | payer SELFPAY ==
[2022-12-22] MEDS ORDERED: Metoprolol Tartrate 50 MG Tab PO ONE (23:01)
[2022-12-22] MEDS ORDERED: Thiamine 100 MG Tab PO ONE (23:11)
[2022-12-22] MEDS ORDERED: Multivitamins with Iron/Calcium/Folic Acid/Minerals Tab PO ONE (23:11)
[2022-12-22] MEDS ORDERED: Folic Acid 1 MG Tab PO ONE (23:11)
[2022-12-22 23:14] LABS: BASOPHILS ABSOLUTE AUTO 0.09 K/uL (0.00-0.10); BASOPHILS PERCENT AUTO 1.1 % (0.1-1.3); EOSINOPHILS PERCENT AUTO 2.5 % (0.0-5.4); HEMATOCRIT 43.6 % (34.3-46.0); HEMOGLOBIN 15.2 g/dL (11.2-15.5); IMMATURE GRAN PERCENT AUTO 0.1 % (0.0-0.7); LYMPHOCYTES PERCENT AUTO 55.3 % (11.4-47.7); MEAN CORPUSCULAR HEMOGLOBIN 33.8 pg (31.6-35.5); MEAN CORPUSCULAR HGB CONC 34.9 g/dL (31.6-35.5); MEAN CORPUSCULAR VOLUME 96.9 fL (81.4-99.0); MONOCYTES ABSOLUTE AUTO 0.66 K/uL (0.20-0.90); MONOCYTES PERCENT AUTO 8.3 % (3.3-12.6); NEUTROPHILS ABSOLUTE AUTO 2.59 K/uL (1.0-7.6); NEUTROPHILS PERCENT AUTO 32.7 % (40.0-78.1); PLATELET COUNT,PLT 228 K/uL (130-375)
[2022-12-22 23:18] LABS: IMMATURE GRAN ABSOLUTE AUTO 0.01 K/uL (0.00-0.23)
[2022-12-22 23:19] LABS: AMPHETAMINES SCREEN, URINE NEGATIVE (NEGATIVE); BARBITURATE SCREEN,URINE NEGATIVE (NEGATIVE); BENZODIAZEPINES SCREEN,URINE NEGATIVE (NEGATIVE); METHADONE SCREEN, URINE NEGATIVE (NEGATIVE); METHAMPHETAMINES SCREEN, URINE NEGATIVE (NEGATIVE); OXYCODONE SCREEN,URINE NEGATIVE (NEGATIVE); PROPOXYPHENE SCREEN,URINE NEGATIVE (NEGATIVE); THC SCREEN,URINE 50 NG/ML NEGATIVE (NEGATIVE)
[2022-12-22 23:35] LABS: A/G RATIO 1.1 (1.2-2.2); ALANINE AMINOTRANSFERASE,ALT 95 U/L (12-78); ALBUMIN 4.4 g/dL (3.4-5.0); ALKALINE PHOSPHATASE 83 U/L (46-116); ANION GAP 7.6 mmol/L (5.0-14.0); ASPARTATE AMNIOTRANSFERASE,AST 113 U/L (15-37); BILIRUBIN TOTAL 0.3 mg/dL (0.2-1.0); BLOOD UREA NITROGEN,BUN 13 mg/dL (7-18); CALCIUM 8.8 mg/dL (8.5-10.1); CARBON DIOXIDE,CO2 30 mmol/L (21-32); CHLORIDE,CL 103 mmol/L (100-108); CREATININE 0.8 mg/dL (0.6-1.0); EST CRCL DRUG DOSING (CG) 61.36 mL/min; ESTIMATED GFR 86 mL/min (>60); GLUCOSE RANDOM 121 mg/dL (74-106); MAGNESIUM 2.1 mg/dL (1.8-2.4); POTASSIUM,K 3.9 mmol/L (3.6-5.2); PROTEIN TOTAL,TP 8.5 g/dL (6.4-8.2); SODIUM,NA 141 mmol/L (140-148)
[2022-12-23 01:17] VITALS: BP 112/79; PULSE 76
== END 2022-12-23 01:54 ==
LOC: JP.ED 22:24
DX: F10.10 Alcohol abuse, uncomplicated (principal); I10 Essential (primary) hypertension; F17.210 Nicotine dependence, cigarettes, uncomplicated; R74.01 Elevation of levels of liver transaminase levels; E78.00 Pure hypercholesterolemia, unspecified; Y90.8 Blood alcohol level of 240 mg/100 ml or more; Z79.899 Other long term (current) drug therapy
CPT/HCPCS: 36415; 80053; 80305; 80307; 83735; 85025; 93005; 99284; A9270

== ENCOUNTER 2024-06-12 11:33 | Emergency (ER) | payer OTHER ==
[2024-06-12 11:53] VITALS: BP 141/85; PULSE 65
[2024-06-12 12:24] LABS: BASOPHILS ABSOLUTE AUTO 0.04 K/uL (0.00-0.10); BASOPHILS PERCENT AUTO 0.7 % (0.1-1.3); EOSINOPHILS ABSOLUTE AUTO 0.18 K/uL (0.00-0.40); EOSINOPHILS PERCENT AUTO 3.3 % (0.0-5.4); HEMATOCRIT 42.6 % (34.3-46.0); HEMOGLOBIN 14.9 g/dL (11.2-15.5); IMMATURE GRAN PERCENT AUTO 0.2 % (0.0-0.7); LYMPHOCYTES ABSOLUTE AUTO 2.67 K/uL (0.8-3.3); LYMPHOCYTES PERCENT AUTO 48.9 % (11.4-47.7); MONOCYTES ABSOLUTE AUTO 0.55 K/uL (0.20-0.90); MONOCYTES PERCENT AUTO 10.1 % (3.3-12.6); NEUTROPHILS ABSOLUTE AUTO 2.01 K/uL (1.0-7.6); NEUTROPHILS PERCENT AUTO 36.8 % (40.0-78.1); PLATELET COUNT,PLT 219 K/uL (130-375); RED BLOOD CELL COUNT 4.26 M/uL (3.77-5.24); WHITE BLOOD CELL COUNT,WBC 5.5 K/uL (3.2-11.0)
[2024-06-12 12:26] LABS: IMMATURE GRAN ABSOLUTE AUTO 0.01 K/uL (0.00-0.23)
[2024-06-12 12:47] LABS: A/G RATIO 0.9 (1.2-2.2); ALANINE AMINOTRANSFERASE,ALT 94 U/L (12-78); ALBUMIN 3.8 g/dL (3.4-5.0); ALKALINE PHOSPHATASE 81 U/L (46-116); ANION GAP 16.5 mmol/L (5.0-14.0); ASPARTATE AMNIOTRANSFERASE,AST 112 U/L (15-37); BILIRUBIN TOTAL 0.3 mg/dL (0.2-1.0); BLOOD UREA NITROGEN,BUN 9 mg/dL (7-18); CARBON DIOXIDE,CO2 24 mmol/L (21-32); CHLORIDE,CL 106 mmol/L (100-108); CREATININE 0.8 mg/dL (0.6-1.0); EST CRCL DRUG DOSING (CG) 59.89 mL/min; ESTIMATED GFR 85 mL/min (>60); GLUCOSE RANDOM 102 mg/dL (74-106); POTASSIUM,K 3.5 mmol/L (3.6-5.2); SODIUM,NA 143 mmol/L (140-148)
[2024-06-12 13:27] LABS: AMPHETAMINES SCREEN, URINE NEGATIVE (NEGATIVE); BARBITURATE SCREEN,URINE NEGATIVE (NEGATIVE); BENZODIAZEPINES SCREEN,URINE NEGATIVE (NEGATIVE); METHADONE SCREEN, URINE NEGATIVE (NEGATIVE); METHAMPHETAMINES SCREEN, URINE NEGATIVE (NEGATIVE); OXYCODONE SCREEN,URINE NEGATIVE (NEGATIVE); PROPOXYPHENE SCREEN,URINE NEGATIVE (NEGATIVE); THC SCREEN,URINE 50 NG/ML PRESUMPTIVE POSITIVE (NEGATIVE)
== END 2024-06-12 16:56 | disposition home or self-care (01) ==
LOC: JP.ED 11:33
DX: F10.10 Alcohol abuse, uncomplicated (principal); I10 Essential (primary) hypertension; E78.00 Pure hypercholesterolemia, unspecified; Z88.8 Allergy status to other drugs, medicaments and biological substances; Z79.899 Other long term (current) drug therapy; Z90.49 Acquired absence of other specified parts of digestive tract
CPT/HCPCS: 36415; 80053; 80305-QW; 80307; 85025; 99283; 99284

== ENCOUNTER 2025-01-18 12:21 | Emergency (ER) | payer OTHER ==
[2025-01-18 13:07] LABS: APPEARANCE,URINE SLIGHTLY CLOUDY (CLEAR); GLUCOSE,URINE NEGATIVE (NEGATIVE); OCCULT BLOOD,URINE SMALL (NEGATIVE)
[2025-01-18 13:17] LABS: AMPHETAMINES SCREEN, URINE NEGATIVE (NEGATIVE); METHADONE SCREEN, URINE NEGATIVE (NEGATIVE); METHAMPHETAMINES SCREEN, URINE NEGATIVE (NEGATIVE); OXYCODONE SCREEN,URINE NEGATIVE (NEGATIVE); SQUAMOUS EPITHELIAL CELLS,UR NOT SEEN /HPF; UROTHELIAL CELLS,URINE NOT SEEN /HPF
[2025-01-18 13:18] LABS: PROPOXYPHENE SCREEN,URINE NEGATIVE (NEGATIVE); THC SCREEN,URINE 50 NG/ML PRESUMPTIVE POSITIVE (NEGATIVE)
[2025-01-18] MEDS ORDERED: Naloxone 0.4 MG/ML SDV IVPUSH PRN (13:42)
[2025-01-18 13:56] LABS: BASE EXCESS VENOUS 3.3 mm/L; BASOPHILS ABSOLUTE AUTO 0.04 K/uL (0.00-0.10); BASOPHILS PERCENT AUTO 0.6 % (0.1-1.3); BICARBONATE,VENOUS 25.3 mmol/L; EOSINOPHILS PERCENT AUTO 0.0 % (0.0-5.4); IMMATURE GRAN PERCENT AUTO 0.3 % (0.0-0.7); LYMPHOCYTES ABSOLUTE AUTO 1.38 K/uL (0.8-3.3); LYMPHOCYTES PERCENT AUTO 19.9 % (11.4-47.7); MONOCYTES ABSOLUTE AUTO 0.57 K/uL (0.20-0.90); MONOCYTES PERCENT AUTO 8.2 % (3.3-12.6); NEUTROPHILS ABSOLUTE AUTO 4.94 K/uL (1.0-7.6); NEUTROPHILS PERCENT AUTO 71.0 % (40.0-78.1); O2 SATURATION VENOUS 75.2; OXYHEMOGLOBIN 71.8 %; PCO2 VENOUS 31.4 mm/Hg; PH,VENOUS 7.516 (7.350-7.450); PLATELET COUNT,PLT 181 K/uL (130-375); PO2 VENOUS 39.8 mm/Hg; RED BLOOD CELL COUNT 4.15 M/uL (3.77-5.24); TOTAL HEMOGLOBIN 14.2 g/dL (12.0-16.0); WHITE BLOOD CELL COUNT,WBC 7.0 K/uL (3.2-11.0)
[2025-01-18 13:59] LABS: EOSINOPHILS ABSOLUTE AUTO 0.00 K/uL (0.00-0.40); IMMATURE GRAN ABSOLUTE AUTO 0.02 K/uL (0.00-0.23)
[2025-01-18] MEDS: Prochlorperazine 10 MG/2 ML SDV IVPUSH ONE (14:06)
[2025-01-18 14:20] LABS: A/G RATIO 1.1 (1.2-2.2); ALANINE AMINOTRANSFERASE,ALT 56 U/L (12-78); ASPARTATE AMNIOTRANSFERASE,AST 49 U/L (15-37); BILIRUBIN TOTAL 0.8 mg/dL (0.2-1.0); BLOOD UREA NITROGEN,BUN 9 mg/dL (7-18); CARBON DIOXIDE,CO2 27 mmol/L (21-32); CHLORIDE,CL 97 mmol/L (100-108); CREATININE 0.7 mg/dL (0.6-1.0); EST CRCL DRUG DOSING (CG) 68.44 mL/min; ESTIMATED GFR 100 mL/min (>60); GLUCOSE RANDOM 98 mg/dL (74-106); POTASSIUM,K 3.4 mmol/L (3.6-5.2); PROTEIN TOTAL,TP 8.2 g/dL (6.4-8.2); SODIUM,NA 136 mmol/L (140-148)
[2025-01-18 14:21] LABS: CREATINE KINASE,CK 217.0 U/L (26-192)
[2025-01-18] MEDS: Ciprofloxacin in D5W 400 MG in Premix Bag 1 BAG IV ONE (15:40)
[2025-01-18] MEDS: LORazepam 2 MG/ML SDV IVPUSH ONE (15:45)
[2025-01-18 17:22] VITALS: BP 153/90; PULSE 95
== END 2025-01-18 17:39 | disposition home or self-care (01) ==
LOC: JP.ED 12:21
DX: E86.0 Dehydration (principal); N39.0 Urinary tract infection, site not specified; I10 Essential (primary) hypertension; E78.00 Pure hypercholesterolemia, unspecified; Z79.899 Other long term (current) drug therapy; Z88.8 Allergy status to other drugs, medicaments and biological substances; Z90.49 Acquired absence of other specified parts of digestive tract
CPT/HCPCS: 36415; 80053; 80305; 80307; 81001; 82550; 82803; 83605; 83690; 83735; 84484; 85025; 86140; 96361; 96365; 96375; 99284; J0744; J0780; J2060; J7030